=== PATIENT | female | born 1965 | race Caucasian/White ===

== ENCOUNTER 2023-06-07 17:25 | Inpatient (IN) ==
[2023-06-07 18:19] LABS: Basophils # (auto) 0.05 K/uL (0-0.2); Eosinophils # (auto) 0.02 K/uL (0-0.50); Eosinophils % (auto) 0.4 %; Hematocrit (blood only) 39.6 % (37.0-47.0); Immature Granulocytes # (auto) 0.01 K/uL (0.01-0.20); Immature Granulocytes % (auto) 0.2 %; Lymphocytes # (auto) 1.22 K/uL (1.2-3.4); Mean Corpuscular Hgb Conc 32.8 g/dL (32.0-36.0); Mean Corpuscular Volume 100.5 fL (80.0-100.0); Monocytes # (auto) 0.53 K/uL (0.11-0.59); Monocytes % (auto) 10.4 %; Neutrophils # (auto) 3.25 K/uL (1.40-6.50); Platelet Count 255 K/uL (130-400); RDW Coefficient of Variation 15.2 % (11.5-14.5); RDW Standard Deviation 56.2 fL (36.4-46.3); Red Blood Count 3.94 M/uL (4.20-5.40); White Blood Count 5.08 K/ul (4.8-10.8)
[2023-06-07 18:36] LABS: Alanine Aminotransferase 11 U/L (7-52); Albumin Globulin Ratio 1.1 (0.9-2); Albumin Level 3.8 gm/dl (3.4-5.0); Alkaline Phosphatase 102 U/L (34-104); Anion Gap 8 (3-11); Aspartate Aminotransferase 17 U/L (13-39); BUN Creatinine Ratio 22.2 (10-20); Bilirubin,Total 0.6 mg/dl (0.2-1.0); Blood Urea Nitrogen 18 mg/dl (6-23); Calcium 9.4 mg/dl (8.6-10.3); Carbon Dioxide 26 mmol/L (21-32); Chloride 103 mmol/L (98-107); Est GFR (African American) 94.8 ml/min; Est GFR (Non-African American) 81.8 ml/min; Globulin 3.5 gm/dl (2.5-4.0); Glucose 111 mg/dl (70-99(Fasting)); Potassium 4.3 mmol/L (3.5-5.1); Sodium 137 mmol/L (136-145); Total Protein 7.3 gm/dl (6.0-8.3)
--- NOTE | 2023-06-07 18:55 | Emergency Department Note ---
History of Present Illness General Chief complaint: Illness Stated complaint: UNABLE TO WALK,DIZZY,?MEDICATION SIDE EFFECTS Time Seen by Provider: 06/07/23 18:18 Source: family History of Present Illness Provider complaint: Recurrent falls 57-year-old female with history of Down syndrome and Alzheimer's presents emergency department with family for recurrent falls. Patient family reports that she was diagnosed with a UTI about 1 week ago and was started on amp icillin. Sister at bedside states that since being on the ampicillin the patient has developed a rash over her face and her anterior chest and has been extremely weak and keeps falling. She states that the patient is been unable to walk. Home Medications Medication Instructions Recorded Confirmed Type allopurinol 100 mg tablet 100 mg PO DAILY 05/31/23 06/07/23 History apremilast 30 mg tablet (Otezla) 30 mg PO BID 05/31/23 06/07/23 History ascorbic acid (vitamin C) 500 mg 500 mg PO DAILY 05/31/23 06/07/23 History capsule atorvastatin 20 mg tablet 20 mg PO DAILY 05/31/23 06/07/23 History cholecalciferol (vitamin D3) 125 125 mcg PO DAILY 05/31/23 06/07/23 History mcg (5,000 unit) capsule donepezil 5 mg tablet 5 mg PO DAILY 05/31/23 06/07/23 History glucosamine HCl 1,500 mg tablet 1,500 mg PO DAILY 05/31/23 06/07/23 History levothyroxine 137 mcg capsule 137 mcg PO DAILY 05/31/23 06/07/23 History mecobalamin (vitamin B12) 1,000 1,000 mcg PO DAILY 05/31/23 06/07/23 History mcg chewable tablet ampicillin 500 mg capsule 500 mg PO TID #21 caps 06/03/23 06/07/23 Rx aspirin 81 mg tablet,delayed 81 mg PO DAILY 06/07/23 06/07/23 History release calcipotriene-betamethasone 0.005 1 applic topical DAILY 06/07/23 06/07/23 History %-0.064 % topical ointment clindamycin phosphate 1 % topical 1 applic topical DAILY 06/07/23 06/07/23 History swab cranberry juice 1 ea PO DAILY 06/07/23 06/07/23 History metronidazole 0.75 % topical cream 1 applic topical DAILY 06/07/23 06/07/23 History risperidone 0.25 mg tablet 25 mg PO HS 06/07/23 06/07/23 History Allergies Allergy/AdvReac Type Severity Reaction Status Date / Time colchicine Allergy Intermediate Swelling Unverified 06/07/23 20:45 of the Eye Past Med/Surg History Medical History Alzheimer disease Down syndrome Incontinence No pertinent family history Recurrent UTI Surgical History No pertinent past surgical history Social History Smoking Status: Never smoker Preferred Language: Polish Feels Safe at Home: Yes Physical Exam Vital Signs Vital Signs - 24 hr 06/07/23 17:27 06/07/23 18:50 06/07/23 20:32 Temperature 36.5 C Temperature Source Temporal Artery Scan Pulse Rate 74 59 L Pulse Rate [Right Apical] 62 Respiratory Rate 17 24 Respiratory Effort / Characteristics Non-Labored Spontaneous Non-Labored Spontaneous Respiratory Depth Normal Normal Respiratory Pattern Regular Regular Blood Pressure 103/64 Blood Pressure [Left Calf] 109/59 L Blood Pressure Mean 77 Blood Pressure Mean [Left Calf] 75 Pulse Oximetry 98 98 Oxygen Delivery Method Room Air Room Air Sepsis Recent Fever Within 48 Hours No Sepsis New/Unexplained Change in Mental Status No Sepsis Action Taken by Nursing No Action Required 06/07/23 21:01 Temperature Temperature Source Pulse Rate 56 L Pulse Rate [Right Apical] Respiratory Rate 14 Respiratory Effort / Characteristics Respiratory Depth Respiratory Pattern Blood Pressure 94/62 L Blood Pressure [Left Calf] Blood Pressure Mean 72 Blood Pressure Mean [Left Calf] Pulse Oximetry Oxygen Delivery Method Sepsis Recent Fever Within 48 Hours Sepsis New/Unexplained Change in Mental Status Sepsis Action Taken by Nursing Physical Exam HENT: Exam performed. -Head: Normocephalic and atraumatic. -Mouth: Moist mucous membranes, no lesions. CV: Normal rate, regular rhythm, normal heart sounds and intact distal pulses. There is no peripheral edema. Palpable radial pulses bue. PULM/CHEST: Effort normal and breath sounds normal. No respiratory distress. No stridor. She has no wheezes. She has no rales. -Chest Wall: She exhibits no tenderness. ABD: The abdomen is soft and obese MUSC/SKEL: Pelvis stable. NEURO: Motor and sensation grossly intact. SKIN: Urticarial macular rash over the patient's anterior chest and face. No fluctuant areas. No vesicles. Nikolsky negative. Course Course 1817: The patient was evaluated in room B10. A complete history and physical exam was performed Administered Medications Enoxaparin Sodium (Enoxaparin Inj 40 Mg/0.4 Ml Syr) 40 mg SQ HS JACKIE Stop: 07/07/23 22:29 Last Admin: 06/07/23 23:12 Dose: 40 mg Documented By: JORDIN Lactated Ringer's (Lr) 500 mls @ 80 mls/hr IV .[id number] STA Stop: 06/08/23 03:46 Last Admin: 06/07/23 23:06 Dose: 80 mls/hr Documented By: JORDIN Ciprofloxacin (Cipro / D5w) 400 mg in 200 mls @ 100 mls/hr IV Q12H JACKIE; Protocol Stop: 06/12/23 22:59 Last Admin: 06/07/23 23:06 Dose: 100 mls/hr Documented By: JORDIN Discontinued Medications Ioversol (Ioversol 350 Mg 125ml Prefilled Syringe) 118 ml IV ONCE ONE Stop: 06/07/23 19:13 Last Admin: 06/07/23 19:12 Dose: 118 ml Documented By: AMY Medical Decision Making Laboratory Data Attestation: I reviewed the patient's lab results. 06/07/23 17:45 06/07/23 17:45 Lab Results 06/07/23 06/07/23 06/07/23 Range/Units 17:45 17:45 17:45 WBC 5.08 (4.8-10.8) K/ul RBC 3.94 L (4.20-5.40) M/uL Hgb 13.0 (12.0-16.0) g/dl Hct 39.6 (37.0-47.0) % MCV 100.5 H (80.0-100.0) fL MCH 33.0 (25.0-34.0) pg MCHC 32.8 (32.0-36.0) g/dL RDW Std Deviation 56.2 H (36.4-46.3) fL RDW Coeff of Kevin 15.2 H (11.5-14.5) % Plt Count 255 (130-400) K/uL MPV 11.0 (9.4-12.4) fL Immature Gran % (Auto) 0.2 % Neut % (Auto) 64.0 % Lymph % (Auto) 24.0 % [place] % (Auto) 10.4 % Eos % (Auto) 0.4 % Baso % (Auto) 1.0 % Neut # (Auto) 3.25 (1.40-6.50) K/uL Lymph # (Auto) 1.22 (1.2-3.4) K/uL [place] # (Auto) 0.53 (0.11-0.59) K/uL Eos # (Auto) 0.02 (0-0.50) K/uL Baso # (Auto) 0.05 (0-0.2) K/uL Immature Gran # (Auto) 0.01 (0.01-0.20) K/uL Sodium 137 (136-145) mmol/L Potassium 4.3 (3.5-5.1) mmol/L Chloride 103 (98-107) mmol/L Carbon Dioxide 26 (21-32) mmol/L Anion Gap 8 (3-11) BUN 18 (6-23) mg/dl Creatinine 0.81 (0.6-1.2) mg/dl Est Cr Clr Drug Dosing Not Reportable Est GFR ( Amer) 94.8 ml/min Est GFR (Non-Af Amer) 81.8 ml/min BUN/Creatinine Ratio 22.2 H (10-20) Glucose 111 H (70-99(Fasting)) mg/dl Lactate (0.4-2.0) mmol/L Calcium 9.4 (8.6-10.3) mg/dl Magnesium 1.8 (1.7-2.4) mg/dl Total Bilirubin 0.6 (0.2-1.0) mg/dl AST 17 (13-39) U/L ALT 11 (7-52) U/L Alkaline Phosphatase 102 (34-104) U/L Total Protein 7.3 (6.0-8.3) gm/dl Albumin 3.8 (3.4-5.0) gm/dl Globulin 3.5 (2.5-4.0) gm/dl Albumin/Globulin Ratio 1.1 (0.9-2) Procalcitonin < 0.05 (0-0.5) ng/ml Urine Color Urine Appearance (Clear) Urine pH (4.5-7.5) Ur Specific [place] (1.000-1.030) Urine Protein (Negative) Urine Glucose (UA) (Negative) Urine Ketones (Negative) Urine Blood (Negative) Urine Nitrite (Negative) Urine Bilirubin (Negative) Urine Urobilinogen (Negative) Ur Leukocyte Esterase (Negative) SARS-CoV-2, RNA, NAAT (NEGATIVE) 06/07/23 06/07/23 06/07/23 Range/Units 17:54 18:52 21:07 WBC (4.8-10.8) K/ul RBC (4.20-5.40) M/uL Hgb (12.0-16.0) g/dl Hct (37.0-47.0) % MCV (80.0-100.0) fL MCH (25.0-34.0) pg MCHC (32.0-36.0) g/dL RDW Std Deviation (36.4-46.3) fL RDW Coeff of Kvein (11.5-14.5) % Plt Count (130-400) K/uL MPV (9.4-12.4) fL Immature Gran % (Auto) % Neut % (Auto) % Lymph % (Auto) % [place] % (Auto) % Eos % (Auto) % Baso % (Auto) % Neut # (Auto) (1.40-6.50) K/uL Lymph # (Auto) (1.2-3.4) K/uL [place] # (Auto) (0.11-0.59) K/uL Eos # (Auto) (0-0.50) K/uL Baso # (Auto) (0-0.2) K/uL Immature Gran # (Auto) (0.01-0.20) K/uL Sodium (136-145) mmol/L Potassium (3.5-5.1) mmol/L Chloride (98-107) mmol/L Carbon Dioxide (21-32) mmol/L Anion Gap (3-11) BUN (6-23) mg/dl Creatinine (0.6-1.2) mg/dl Est Cr Clr Drug Dosing Est GFR ( Amer) ml/min Est GFR (Non-Af Amer) ml/min BUN/Creatinine Ratio (10-20) Glucose (70-99(Fasting)) mg/dl Lactate 1.3 (0.4-2.0) mmol/L Calcium (8.6-10.3) mg/dl Magnesium (1.7-2.4) mg/dl Total Bilirubin (0.2-1.0) mg/dl AST (13-39) U/L ALT (7-52) U/L Alkaline Phosphatase (34-104) U/L Total Protein (6.0-8.3) gm/dl Albumin (3.4-5.0) gm/dl Globulin (2.5-4.0) gm/dl Albumin/Globulin Ratio (0.9-2) Procalcitonin (0-0.5) ng/ml Urine Color Yellow Urine Appearance Clear (Clear) Urine pH 5.5 (4.5-7.5) Ur Specific [place] 1.019 (1.000-1.030) Urine Protein Negative (Negative) Urine Glucose (UA) Negative (Negative) Urine Ketones Negative (Negative) Urine Blood Negative (Negative) Urine Nitrite Negative (Negative) Urine Bilirubin Negative (Negative) Urine Urobilinogen Negative (Negative) Ur Leukocyte Esterase Negative (Negative) SARS-CoV-2, RNA, NAAT NEGATIVE (NEGATIVE) Imaging Data Attestation: I personally reviewed and interpreted this imaging study as follows: My Impression: Chest x-ray: Chest x-ray negative. Airway clear. No pneumothorax. No consolidation. No cardiomegaly or cephalization.. No free air under the diaphragm. No fractures of the skeletal structures. Pelvis x-ray: No acute fracture or dislocation Radiologist's Impression: Head CT 06/07/23 18:23 Exam(s): CT HEAD Without Contrast EXAM: CT Head Without Intravenous Contrast CLINICAL HISTORY: Reason for exam: recurrent falls. TECHNIQUE: Axial computed tomography images of the head/brain without intravenous contrast. CTDI is 37.22 mGy and DLP is 624.41 mGy-cm. Automated exposure control was utilized for the study. A dose lowering technique was utilized adhering to the principles of ALARA. COMPARISON: No relevant prior studies available. FINDINGS: No acute intracranial hemorrhage. No midline shift or mass effect. The territorial patrick-white matter differentiation is maintained throughout. Age-related cerebral volume loss. Periventricular and subcortical white matter hypoattenuation, consistent with chronic microangiopathy. The visualized orbits appear grossly unremarkable. The calvarium is intact. The visualized paranasal sinuses and mastoid air cells are grossly clear. IMPRESSION: No acute intracranial hemorrhage, midline shift, or mass effect. Electronically signed by: Roman Oseguera MD 06/07/23 19:48 PM Head CTA 06/07/23 18:23 Exam(s): CTA HEAD With Contrast IV Amt: 118 ml optiray 350 EXAM: CT Angiography Head With Intravenous Contrast CLINICAL HISTORY: Reason for exam: recurrent falls. TECHNIQUE: Axial computed tomographic angiography images of the head with intravenous contrast. CTDI is 15.75 mGy and DLP is 575.52 mGy-cm. Automated exposure control was utilized for the study. A dose lowering technique was utilized adhering to the principles of ALARA. MIP reconstructed images were created and reviewed. Mild to moderate motion artifact. CONTRAST: Patient received 118 ml optiray 350 of IV contrast COMPARISON: Noncontrast head CT done earlier. FINDINGS: Right internal carotid artery: Patent. Right anterior cerebral artery: Patent. Right middle cerebral artery: Patent. Right posterior cerebral artery: Patent. Right vertebral artery: Patent. Left internal carotid artery: Patent. Left anterior cerebral artery: Patent. Left middle cerebral artery: Patent. Left posterior cerebral artery: Patent. Left vertebral artery: Patent, though diminutive, due to normal variant anatomy. Basilar artery: Patent. Other: Incidentally, predominant supply of the posterior cerebral artery is via the anterior circulation, also known as origin. IMPRESSION: 1. No aneurysm or large vessel occlusion. Electronically signed by: Marisel Carey M.D. 06/07/23 20:28 PM Neck CTA 06/07/23 18:23 Exam(s): CTA NECK With Contrast IV Amt: 118 ml optiray 350 EXAM: CT Angiography Neck With Intravenous Contrast CLINICAL HISTORY: Reason for exam: recurrent falls. TECHNIQUE: Routine carotid CT angiography protocol was performed with intravenous contrast. NASCET criteria using the distal ICAs for comparison were used for evaluation of stenoses. CTDI is 37.37 mGy and DLP is 18.68 mGy-cm. Automated exposure control was utilized for the study. A dose lowering technique was utilized adhering to the principles of ALARA. MIP reconstructed images were created and reviewed. Mild motion, dental metal, streak artifact from contrast in the left subclavian and brachiocephalic veins, and artifact from body habitus. CONTRAST: Patient received 118 ml optiray 350 of IV contrast COMPARISON: None. FINDINGS: VASCULATURE: Right common carotid artery: Patent. Right internal carotid artery: Patent. Right vertebral artery: Patent. Slight right dominant system. Left common carotid artery: Patent. Left internal carotid artery: Patent. Left vertebral artery: Patent. Other: Ectatic bilateral carotid arteries. No significant atherosclerosis or stenosis. Incidental aberrant left subclavian artery, can result in dysphagia, correlate clinically. IMPRESSION: 1. No dissection, occlusion, or significant stenosis of the carotid and vertebral arteries. 2. Incidental aberrant left subclavian artery. 3. Mild artifact limits detail. CAROTID STENOSIS REFERENCE USING NASCET CRITERIA: % ICA stenosis = (1 - narrowest ICA diameter/diameter of distal cervical ICA) x 100. Mild - <50% stenosis. Moderate - 50-69% stenosis. Severe - 70-94% stenosis. Near occlusion - 95-99% stenosis. Occluded - 100% stenosis. Electronically signed by: Marisel Carey M.D. 06/07/23 20:[address] 06/07/23 18:24 Exam(s): CT C SPINE EXAM: CT Cervical Spine Without Intravenous Contrast CLINICAL HISTORY: Reason for exam: fall. TECHNIQUE: Axial computed tomography images of the cervical spine without intravenous contrast. CTDI is 26.8 mGy and DLP is 532.99 mGy-cm. Automated exposure control was utilized for the study. A dose lowering technique was utilized adhering to the principles of ALARA. COMPARISON: No relevant prior studies available. FINDINGS: The vertebral body heights are maintained. The craniocervical junction is intact. The atlanto-dens interval is maintained. The dens is intact. There is no spondylolisthesis. Multilevel cervical spondylosis and degenerative disc disease. Straightening of the cervical lordosis. The unenhanced neck soft tissues are grossly unremarkable. The visualized lung apices are grossly clear. IMPRESSION: No acute fracture or subluxation of the cervical spine. Electronically signed by: Roman Oseguera MD 06/07/23 19:48 PM [facility] Narrative Cardiac monitoring: An order was placed for continuous cardiac monitoring. The monitor shows a rate of 60 with sinus rhythm interpreted by me Vital signs stable. Labs and imaging within normal limits. Patient is still very weak and having difficulty ambulating. Patient will be [facility] team for further evaluation. Dr. Spring notified. Impression & Plan Drug rash, Alzheimer disease, Down syndrome, Weakness Discharge Plan Visit Data Chief Complaint: Illness Stated Complaint: UNABLE TO WALK,DIZZY,?MEDICATION SIDE EFFECTS ED Provider: Archie Eden Discharge Problem: Drug rash, Alzheimer disease, Down syndrome, Weakness Patient Disposition: Admitted As Inpatient Discharge Instructions Interventions: ED Discharge Assessment Last Done: 06/07/23 21:49
[2023-06-07] MEDS ORDERED: IOVERSOL 350 MG 125mL Prefilled Syringe IV ONE (19:12)
[2023-06-07 19:22] LABS: Appearance Urine Clear (Clear); Bilirubin Urine Negative (Negative); Blood Urine Negative (Negative); Color Urine Yellow; Glucose Urine UA Negative (Negative); Ketones Urine Negative (Negative); Leukocyte Esterase Urine Negative (Negative); Nitrite Urine Negative (Negative); Protein Urine Negative (Negative); Specific Gravity Urine 1.019 (1.000-1.030); Urobilinogen Urine Negative (Negative); pH Urine 5.5 (4.5-7.5)
--- NOTE | 2023-06-07 19:49 | CT Scan Report ---
Exam(s): CT C SPINE EXAM: CT Cervical Spine Without Intravenous Contrast CLINICAL HISTORY: Reason for exam: fall. TECHNIQUE: Axial computed tomography images of the cervical spine without intravenous contrast. CTDI is 26.8 mGy and DLP is 532.99 mGy-cm. Automated exposure control was utilized for the study. A dose lowering technique was utilized adhering to the principles of ALARA. COMPARISON: No relevant prior studies available. FINDINGS: The vertebral body heights are maintained. The craniocervical junction is intact. The atlanto-dens interval is maintained. The dens is intact. There is no spondylolisthesis. Multilevel cervical spondylosis and degenerative disc disease. Straightening of the cervical lordosis. The unenhanced neck soft tissues are grossly unremarkable. The visualized lung apices are grossly clear. IMPRESSION: No acute fracture or subluxation of the cervical spine. Electronically signed by: Roman Oseguera MD 06/07/23 19:48 PM
--- NOTE | 2023-06-07 19:49 | CT Scan Report ---
Exam(s): CT HEAD Without Contrast EXAM: CT Head Without Intravenous Contrast CLINICAL HISTORY: Reason for exam: recurrent falls. TECHNIQUE: Axial computed tomography images of the head/brain without intravenous contrast. CTDI is 37.22 mGy and DLP is 624.41 mGy-cm. Automated exposure control was utilized for the study. A dose lowering technique was utilized adhering to the principles of ALARA. COMPARISON: No relevant prior studies available. FINDINGS: No acute intracranial hemorrhage. No midline shift or mass effect. The territorial patrick-white matter differentiation is maintained throughout. Age-related cerebral volume loss. Periventricular and subcortical white matter hypoattenuation, consistent with chronic microangiopathy. The visualized orbits appear grossly unremarkable. The calvarium is intact. The visualized paranasal sinuses and mastoid air cells are grossly clear. IMPRESSION: No acute intracranial hemorrhage, midline shift, or mass effect. Electronically signed by: Roman Oseguera MD 06/07/23 19:48 PM
--- NOTE | 2023-06-07 20:29 | CT Scan Report ---
Exam(s): CTA HEAD With Contrast IV Amt: 118 ml optiray 350 EXAM: CT Angiography Head With Intravenous Contrast CLINICAL HISTORY: Reason for exam: recurrent falls. TECHNIQUE: Axial computed tomographic angiography images of the head with intravenous contrast. CTDI is 15.75 mGy and DLP is 575.52 mGy-cm. Automated exposure control was utilized for the study. A dose lowering technique was utilized adhering to the principles of ALARA. MIP reconstructed images were created and reviewed. Mild to moderate motion artifact. CONTRAST: Patient received 118 ml optiray 350 of IV contrast COMPARISON: Noncontrast head CT done earlier. FINDINGS: Right internal carotid artery: Patent. Right anterior cerebral artery: Patent. Right middle cerebral artery: Patent. Right posterior cerebral artery: Patent. Right vertebral artery: Patent. Left internal carotid artery: Patent. Left anterior cerebral artery: Patent. Left middle cerebral artery: Patent. Left posterior cerebral artery: Patent. Left vertebral artery: Patent, though diminutive, due to normal variant anatomy. Basilar artery: Patent. Other: Incidentally, predominant supply of the posterior cerebral artery is via the anterior circulation, also known as origin. IMPRESSION: 1. No aneurysm or large vessel occlusion. Electronically signed by: Marisel Carey M.D. 06/07/23 20:28 PM
--- NOTE | 2023-06-07 20:29 | CT Scan Report ---
Exam(s): CTA NECK With Contrast IV Amt: 118 ml optiray 350 EXAM: CT Angiography Neck With Intravenous Contrast CLINICAL HISTORY: Reason for exam: recurrent falls. TECHNIQUE: Routine carotid CT angiography protocol was performed with intravenous contrast. NASCET criteria using the distal ICAs for comparison were used for evaluation of stenoses. CTDI is 37.37 mGy and DLP is 18.68 mGy-cm. Automated exposure control was utilized for the study. A dose lowering technique was utilized adhering to the principles of ALARA. MIP reconstructed images were created and reviewed. Mild motion, dental metal, streak artifact from contrast in the left subclavian and brachiocephalic veins, and artifact from body habitus. CONTRAST: Patient received 118 ml optiray 350 of IV contrast COMPARISON: None. FINDINGS: VASCULATURE: Right common carotid artery: Patent. Right internal carotid artery: Patent. Right vertebral artery: Patent. Slight right dominant system. Left common carotid artery: Patent. Left internal carotid artery: Patent. Left vertebral artery: Patent. Other: Ectatic bilateral carotid arteries. No significant atherosclerosis or stenosis. Incidental aberrant left subclavian artery, can result in dysphagia, correlate clinically. IMPRESSION: 1. No dissection, occlusion, or significant stenosis of the carotid and vertebral arteries. 2. Incidental aberrant left subclavian artery. 3. Mild artifact limits detail. CAROTID STENOSIS REFERENCE USING NASCET CRITERIA: % ICA stenosis = (1 - narrowest ICA diameter/diameter of distal cervical ICA) x 100. Mild - <50% stenosis. Moderate - 50-69% stenosis. Severe - 70-94% stenosis. Near occlusion - 95-99% stenosis. Occluded - 100% stenosis. Electronically signed by: Marisel Carey M.D. 06/07/23 20:28 PM
--- NOTE | 2023-06-07 20:56 | History & Physical Report ---
Date of Service June 07, 2023 Assessment & Plan (1) Drug rash: Plan: Rash, suspect drug rash 2/2 ampicillin Patient diagnosed with Enterococcus UTI in the preceding week, was able to tolerate 3/7 days of ampicillin but developed a rash on her chest and rapid progressive fatigue immediately after starting antibiotic - Hgb 13.0 - No electrolyte derangement - Cr 0.81 - PCT 0.05 No nausea/vomiting/diarrhea/bloody BMs. Is incontinent of urine at baseline. Will hold ampicillin, switch to ciprofloxacin (is sensitive per 05/31/2023 sensitivities)QTc is not prolonged at 418 on admission Weakness, recent UTI With recent UTI and suspected drug reaction. Ampicillin converted to Cipro as noted No evidence of airway compromise We will add hydroxyzine for itching - No leukocytosis, no concurrent UTI or other viral symptoms - CT-C spine: No acute fracture or subluxation of the cervical spine. -CTA-Neck: 1. No dissection, occlusion, or significant stenosis of the carotid and vertebral arteries. 2. Incidental aberrant left subclavian artery.3. Mild artifact limits detail. -CTA-H: 1. No aneurysm or large vessel occlusion. -CT-H: No acute intracranial hemorrhage, midline shift, or mass effect. No focal weakness on exam Left TM with ear tube and chronic scarring, right TM partially obscured by cerumen but no overt injection/erythema is noted Suspect some element of superimposed deconditioning worsened with recent UTI Lower suspicion for inflammatory demyelinating polyneuropathy/reactive neuropathy/GBS. Appears globally weak in setting of infection and while legs are more weak than arms does not appear to have an ascending weakness pattern. If not improving/suspicion rises is can follow-up with CSF/EMG/MRI/antibody testing - Mg ordered, pending LILIBETH - CPAP AUTOTITRATE 4-10 Hyperlipidemia Aspirin, atorvastatin continued Hypothyroidism Continue Synthroid 137 Downs/Mood Disorder/Alzheimers - Risperidone 25mg qHS Psoriasis - Apremilast BID continued DVT prophylaxis: Lovenox Diet: Regular Disposition: Medical/surgical CODE STATUS: Full code (2) Down syndrome: (3) Alzheimer disease: (4) Recurrent UTI: (5) Weakness: History of Present Illness Primary Care Provider: Blas Medellin is a 57-year-old female with a past medical history of Down syndrome, Alzheimer's, recurrent falls who started on ampicillin 1 week ago for UTI and since then has had a rash over her face and chest with worsening weakness and falls Elise is seen with her parents present. Weak and dizzy for ~3 days. Much more weak, normally unstead on her feet but feels very tired and much more weak than normal 3x falls, very hard to get up standing due to weakness No fevers, or chills. No temperature No cough, congestion, shotness of breath, difficulty breathing No chest pain or chest pressure COmpleted an antibiotic course which she was on for one week. No urinary sypmtoms, but + rash. Was on bactrim for a UTI the week prior. Saw [facility] and tested positive for a different UTI --> f/u with amoxNOm completed 3 of 7 days of ampicillin for enterococcus UTI Medical History: Reviewed Medications: Reviewed Surgical History: Reviewed Family history: Reviewed Allergies: Reviewed Social History: Reviewed no tobacco/etoh Code Status: Full per family r tm obscured l tm with ear tubes in place, TM scarring present. No erythema/effusion Allergies Allergy/AdvReac Type Severity Reaction Status Date / Time colchicine Allergy Intermediate Swelling Unverified 06/07/23 20:45 of the Eye Home Medications Medication Instructions Recorded Confirmed Type allopurinol 100 mg tablet 100 mg PO DAILY 05/31/23 06/07/23 History apremilast 30 mg tablet (Otezla) 30 mg PO BID 05/31/23 06/07/23 History ascorbic acid (vitamin C) 500 mg 500 mg PO DAILY 05/31/23 06/07/23 History capsule atorvastatin 20 mg tablet 20 mg PO DAILY 05/31/23 06/07/23 History cholecalciferol (vitamin D3) 125 125 mcg PO DAILY 05/31/23 06/07/23 History mcg (5,000 unit) capsule donepezil 5 mg tablet 5 mg PO DAILY 05/31/23 06/07/23 History glucosamine HCl 1,500 mg tablet 1,500 mg PO DAILY 05/31/23 06/07/23 History levothyroxine 137 mcg capsule 137 mcg PO DAILY 05/31/23 06/07/23 History mecobalamin (vitamin B12) 1,000 1,000 mcg PO DAILY 05/31/23 06/07/23 History mcg chewable tablet ampicillin 500 mg capsule 500 mg PO TID #21 caps 06/03/23 06/07/23 Rx aspirin 81 mg tablet,delayed 81 mg PO DAILY 06/07/23 06/07/23 History release calcipotriene-betamethasone 0.005 1 applic topical DAILY 06/07/23 06/07/23 History %-0.064 % topical ointment clindamycin phosphate 1 % topical 1 applic topical DAILY 06/07/23 06/07/23 History swab cranberry juice 1 ea PO DAILY 06/07/23 06/07/23 History metronidazole 0.75 % topical cream 1 applic topical DAILY 06/07/23 06/07/23 Hist ory risperidone 0.25 mg tablet 25 mg PO HS 06/07/23 06/07/23 History Past Med/Surg History Medical History Alzheimer disease Down syndrome Incontinence No pertinent family history Recurrent UTI Surgical History No pertinent past surgical history Social History Smoking Status: Never smoker Preferred Language: German Feels Safe at Home: Yes Review of Systems Review of Systems: All systems reviewed & are unremarkable except as noted in HPI & below Physical Exam Physical Exam: General: Oriented to name NAD. Cooperative. HEENT: Atraumatic, normocephalic. Vision/hearing grossly intact. No airway swelling, uvula is midline, no mucous membrane swelling/angioedema Skin: Erythematous, pruritic, scattered papular rash present overlying the chest and proximal anterior shoulders bilaterally Pulm: CTAB A&P. -wheezes, -rales, -rhonchi. Symmetrical chest rise. No increased work of breathing. No respiratory distress. Cardiac: RRR, -mrg. Radial pulses intact and symmetrical. Abdominal: Nontender, nondistended, soft. BS present. Extremities: Warm, dry. Moves all extremities equally, fatigues very easily. Endorses sensation intact to soft touch in hands and feet, limited exam somewhat by mental status Results & Data Results & Data Vital Signs (Past 12 Hours) Vital Signs Temp Pulse Pulse Resp BP BP Pulse Ox 06/07/23 20:32 59 L 06/07/23 18:50 62 24 109/59 L 98 06/07/23 17:27 36.5 C 74 17 103/64 98 O2 Del Method 06/07/23 20:32 06/07/23 18:50 Room Air 06/07/23 17:27 Room Air PG Care Time/CCT Total # of Minutes Spent Total Time Spent with Patient: Total time spent is greater than 50% in coordination of care (as documented) at patient's floor/unit and/or counseling patient: Coding Level of Care Code 03109 INT INP/OBS CARE 3/75MIN Diagnoses Drug rash L27.0 Down syndrome Q90.9 Alzheimer disease G30.9; F02.80 Recurrent UTI N39.0 Weakness R53.1
[2023-06-07] MEDS ORDERED: LACTATED RINGER'S 500 ML IV STA (21:32)
[2023-06-07 21:49] LABS: Magnesium 1.8 mg/dl (1.7-2.4)
[2023-06-07] MEDS: CIPROFLOXACIN / D5W 400 MG/200 ML BAG IV SCH (23:06)
[2023-06-07] MEDS: ENOXAPARIN INJ 40 MG/0.4 ML SYR SQ SCH (23:12)
[2023-06-08] MEDS: LEVOTHYROXINE SODIUM 137 MCG TABLET PO SCH (05:29)
[2023-06-08 07:14] LABS: Hematocrit (blood only) 35.7 % (37.0-47.0); Hemoglobin 11.8 g/dl (12.0-16.0); Lymphocytes % (auto) 40.6 %; Mean Corpuscular Hemoglobin 32.9 pg (25.0-34.0); Mean Corpuscular Hgb Conc 33.1 g/dL (32.0-36.0); Mean Corpuscular Volume 99.4 fL (80.0-100.0); Mean Platelet Volume 10.4 fL (9.4-12.4); Monocytes % (auto) 15.9 %; Neutrophils % (auto) 40.9 %; Platelet Count 234 K/uL (130-400); RDW Coefficient of Variation 15.2 % (11.5-14.5); RDW Standard Deviation 55.5 fL (36.4-46.3); Red Blood Count 3.59 M/uL (4.20-5.40); White Blood Count 2.71 K/ul (4.8-10.8)
[2023-06-08 07:15] LABS: Basophils # (auto) 0.04 K/uL (0-0.2); Basophils % (auto) 1.5 %; Eosinophils # (auto) 0.03 K/uL (0-0.50); Eosinophils % (auto) 1.1 %; Monocytes # (auto) 0.43 K/uL (0.11-0.59); Neutrophils # (auto) 1.11 K/uL (1.40-6.50)
[2023-06-08 07:39] LABS: Calcium 9.2 mg/dl (8.6-10.3); Creatinine Clr Calc Pharmacy 100.1 ml/min; Magnesium 1.8 mg/dl (1.7-2.4); Potassium 3.8 mmol/L (3.5-5.1)
--- NOTE | 2023-06-08 07:45 | XRay Report ---
XR pelvis 1-2V routine HISTORY: 57 years-old Female fall acute pelvic pain status post fall COMPARISON: None TECHNIQUE: AP view of the pelvis FINDINGS: Somewhat limited evaluation of the proximal femora secondary to positioning. Possible chronic right i nferior pubic ramus fracture. No acute fracture, dislocation or avascular necrosis. Mild osteoarthrit is of the hips. Contrast noted within the urinary bladder and imaged ureters. IMPRESSION: No definite acute fracture or dislocation identified. ACT 112: Negative or not required by law. The above report was generated using voice recognition software. It may contain grammatical, syntax o r spelling errors. Electronically signed by: Jann Aviles M.D. 06/08/2023 7:44 AM
--- NOTE | 2023-06-08 07:46 | XRay Report ---
XR chest 1V portable HISTORY: 57 years-old Female illness acute shortness of breath COMPARISON: CTA neck of same day TECHNIQUE: AP view of the chest FINDINGS: Cardiac silhouette is upper limits of normal in size. No pneumothorax, pleural effusion, airspace con solidation or pulmonary edema. Bones appear grossly intact. IMPRESSION: No acute process. ACT 112: Negative or not required by law. The above report was generated using voice recognition software. It may contain grammatical, syntax o r spelling errors. Electronically signed by: Jann Aviles M.D. 06/08/2023 7:45 AM
--- NOTE | 2023-06-08 08:50 | Hospitalist Progress Note ---
Date of Service June 08, 2023 Assessment & Plan (1) Drug rash: Plan: Rash, suspect drug rash 2/2 ampicillin Patient diagnosed with Enterococcus UTI in the preceding week, was able to tolerate 3/7 days of ampicillin but developed a rash on her chest and rapid progressive fatigue immediately after starting antibiotic. Procal .05, Incontinent of urine reported at baseline, however per family worsening/ongoing issue w/ falls over past 3-5 months (will check lumbar spine as well) Holding further ampicillin --> placed on Cipro (sensitive per 05/31 cx/s) and family stated tolerated in past Complete course PO on cipro Pepcid IV added for reflux/itching as well PT/OT consults to be undertaken Weakness, recent UTI With recent UTI and suspected drug reaction. Ampicillin converted to Cipro as noted No evidence of airway compromise We will add hydroxyzine for itching, pepcid IVP daily No leukocytosis/concurrent UTi or other viral symptoms CT head negative on admission. CTA head/neck w/o aneurysm. noted incidental aberrant L subclavian artery. Left TM with ear tube and chronic scarring, right TM partially obscured by cerumen but no overt injection/erythema is noted Suspect some element of superimposed deconditioning worsened with recent UTI Lower suspicion for inflammatory demyelinating polyneuropathy/reactive neuropathy/GBS. Appears globally weak in setting of infection and while legs are more weak than arms does not appear to have an ascending weakness pattern. If not improving/suspicion rises is can follow-up with CSF/EMG/MRI/antibody testing As above, will check lumbar spine w/ incontinence issues. Possible need for MRI but will await xray first LILIBETH CPAP HS, Hyperlipidemia Aspirin, atorvastatin continued Hypothyroidism Continue Synthroid 137mcg daily Downs/Mood Disorder/Alzheimers - Risperidone 25mg qHS Psoriasis - Apremilast BID continued DVT prophylaxis: Lovenox SQ while inpatient (2) Down syndrome: (3) Alzheimer disease: (4) Recurrent UTI: (5) Weakness: Admission and Anticipated Discharge Date Admission Date: June 07, 2023 Supervising Physician Co-Signing Physician Notes The patient was not seen by me. The chart was reviewed. Case discussed with JESUSITA Steen. Agree with assessment and plan Subjective eval this morning, family at bedside reports rash improving, did notice some itching. states believes has tolerated ciprofloxacin in the past ad will continue and monitor for any issues. some loss of bowel/bladder function, alzheimers as well. per family at bedside, have been having to use briefs over past couple of months since falls and ongoing issues they are agreeable to lumbar spine xray to look for any issues since her fall. Physical Exam Physical Exam: General: WD/WN female sitting up in bed, family at bedside, NAD HEENT: rash to face/chest (reportedly improving from prior day), trachea midline without deviation Resp: no distress/cough, poor effort at times, no wheezing/rales, on room air CV: regular/geovani, regular rate, no significant m/r/g, no calf tenderness GI: +BS, soft/NT ; no rivas MSK/Neuro: generalized weakness, decreased dorsiflexion/plantar flexion (but equal bilaterally) Psych: alert to person/place, cooperaitve with exam alzheimers at baseline/downs syndrome Results & Data Results & Data Vital Signs (Past 12 Hours) Vital Signs Temp Pulse Pulse Resp BP BP Pulse Ox 06/08/23 07:22 36.0 C L 57 L 18 103/64 97 06/07/23 23:03 36.6 C 58 L 18 101/58 L 95 06/07/23 21:45 57 L 17 95/57 L 97 06/07/23 21:01 56 L 14 94/62 L O2 Del Method 06/08/23 07:22 Room Air 06/07/23 23:03 Room Air 06/07/23 21:45 Room Air 06/07/23 21:01 Laboratory Results 06/08/23 06/08/23 06/07/23 Range/Units 06:43 06:43 21:07 WBC 2.71 L (4.8-10.8) K/ul RBC 3.59 L (4.20-5.40) M/uL Hgb 11.8 L (12.0-16.0) g/dl Hct 35.7 L (37.0-47.0) % MCV 99.4 (80.0-100.0) fL MCH 32.9 (25.0-34.0) pg MCHC 33.1 (32.0-36.0) g/dL RDW Std Deviation 55.5 H (36.4-46.3) fL RDW Coeff of Kevin 15.2 H (11.5-14.5) % Plt Count 234 (130-400) K/uL MPV 10.4 (9.4-12.4) fL Immature Gran % (Auto) 0.0 % Neut % (Auto) 40.9 % Lymph % (Auto) 40.6 % Roberts % (Auto) 15.9 % Eos % (Auto) 1.1 % Baso % (Auto) 1.5 % Neut # (Auto) 1.11 L (1.40-6.50) K/uL Lymph # (Auto) 1.10 L (1.2-3.4) K/uL Roberts # (Auto) 0.43 (0.11-0.59) K/uL Eos # (Auto) 0.03 (0-0.50) K/uL Baso # (Auto) 0.04 (0-0.2) K/uL Immature Gran # (Auto) 0.00 L (0.01-0.20) K/uL Sodium 139 (136-145) mmol/L Potassium 3.8 (3.5-5.1) mmol/L Chloride 106 (98-107) mmol/L Carbon Dioxide 27 (21-32) mmol/L Anion Gap 6 (3-11) BUN 12 (6-23) mg/dl Creatinine 0.63 (0.6-1.2) mg/dl Est Cr Clr Drug Dosing 100.1 Est GFR ( Amer) 117.0 ml/min Est GFR (Non-Af Amer) 101.0 ml/min BUN/Creatinine Ratio 19.0 (10-20) Glucose 101 H (70-99(Fasting)) mg/dl Lactate (0.4-2.0) mmol/L Calcium 9.2 (8.6-10.3) mg/dl Magnesium 1.8 (1.7-2.4) mg/dl Total Bilirubin (0.2-1.0) mg/dl AST (13-39) U/L ALT (7-52) U/L Alkaline Phosphatase (34-104) U/L Total Protein (6.0-8.3) gm/dl Albumin (3.4-5.0) gm/dl Globulin (2.5-4.0) gm/dl Albumin/Globulin Ratio (0.9-2) Procalcitonin (0-0.5) ng/ml Urine Color Urine Appearance (Clear) Urine pH (4.5-7.5) Ur Specific Roxana (1.000-1.030) Urine Protein (Negative) Urine Glucose (UA) (Negative) Urine Ketones (Negative) Urine Blood (Negative) Urine Nitrite (Negative) Urine Bilirubin (Negative) Urine Urobilinogen (Negative) Ur Leukocyte Esterase (Negative) SARS-CoV-2, RNA, NAAT NEGATIVE (NEGATIVE) 06/07/23 06/07/23 06/07/23 Range/Units 18:52 17:54 17:45 WBC (4.8-10.8) K/ul RBC (4.20-5.40) M/uL Hgb (12.0-16.0) g/dl Hct (37.0-47.0) % MCV (80.0-100.0) fL MCH (25.0-34.0) pg MCHC (32.0-36.0) g/dL RDW Std Deviation (36.4-46.3) fL RDW Coeff of Kevin (11.5-14.5) % Plt Count (130-400) K/uL MPV (9.4-12.4) fL Immature Gran % (Auto) % Neut % (Auto) % Lymph % (Auto) % Roberts % (Auto) % Eos % (Auto) % Baso % (Auto) % Neut # (Auto) (1.40-6.50) K/uL Lymph # (Auto) (1.2-3.4) K/uL Roberts # (Auto) (0.11-0.59) K/uL Eos # (Auto) (0-0.50) K/uL Baso # (Auto) (0-0.2) K/uL Immature Gran # (Auto) (0.01-0.20) K/uL Sodium (136-145) mmol/L Potassium (3.5-5.1) mmol/L Chloride (98-107) mmol/L Carbon Dioxide (21-32) mmol/L Anion Gap (3-11) BUN (6-23) mg/dl Creatinine (0.6-1.2) mg/dl Est Cr Clr Drug Dosing Est GFR ( Amer) ml/min Est GFR (Non-Af Amer) ml/min BUN/Creatinine Ratio (10-20) Glucose (70-99(Fasting)) mg/dl Lactate 1.3 (0.4-2.0) mmol/L Calcium (8.6-10.3) mg/dl Magnesium (1.7-2.4) mg/dl Total Bilirubin (0.2-1.0) mg/dl AST (13-39) U/L ALT (7-52) U/L Alkaline Phosphatase (34-104) U/L Total Protein (6.0-8.3) gm/dl Albumin (3.4-5.0) gm/dl Globulin (2.5-4.0) gm/dl Albumin/Globulin Ratio (0.9-2) Procalcitonin < 0.05 (0-0.5) ng/ml Urine Color Yellow Urine Appearance Clear (Clear) Urine pH 5.5 (4.5-7.5) Ur Specific Roxana 1.019 (1.000-1.030) Urine Protein Negative (Negative) Urine Glucose (UA) Negative (Negative) Urine Ketones Negative (Negative) Urine Blood Negative (Negative) Urine Nitrite Negative (Negative) Urine Bilirubin Negative (Negative) Urine Urobilinogen Negative (Negative) Ur Leukocyte Esterase Negative (Negative) SARS-CoV-2, RNA, NAAT (NEGATIVE) 06/07/23 06/07/23 Range/Units 17:45 17:45 WBC 5.08 (4.8-10.8) K/ul RBC 3.94 L (4.20-5.40) M/uL Hgb 13.0 (12.0-16.0) g/dl Hct 39.6 (37.0-47.0) % MCV 100.5 H (80.0-100.0) fL MCH 33.0 (25.0-34.0) pg MCHC 32.8 (32.0-36.0) g/dL RDW Std Deviation 56.2 H (36.4-46.3) fL RDW Coeff of Kevin 15.2 H (11.5-14.5) % Plt Count 255 (130-400) K/uL MPV 11.0 (9.4-12.4) fL Immature Gran % (Auto) 0.2 % Neut % (Auto) 64.0 % Lymph % (Auto) 24.0 % Roberts % (Auto) 10.4 % Eos % (Auto) 0.4 % Baso % (Auto) 1.0 % Neut # (Auto) 3.25 (1.40-6.50) K/uL Lymph # (Auto) 1.22 (1.2-3.4) K/uL Roberts # (Auto) 0.53 (0.11-0.59) K/uL Eos # (Auto) 0.02 (0-0.50) K/uL Baso # (Auto) 0.05 (0-0.2) K/uL Immature Gran # (Auto) 0.01 (0.01-0.20) K/uL Sodium 137 (136-145) mmol/L Potassium 4.3 (3.5-5.1) mmol/L Chloride 103 (98-107) mmol/L Carbon Dioxide 26 (21-32) mmol/L Anion Gap 8 (3-11) BUN 18 (6-23) mg/dl Creatinine 0.81 (0.6-1.2) mg/dl Est Cr Clr Drug Dosing Not Reportable Est GFR ( Amer) 94.8 ml/min Est GFR (Non-Af Amer) 81.8 ml/min BUN/Creatinine Ratio 22.2 H (10-20) Glucose 111 H (70-99(Fasting)) mg/dl Lactate (0.4-2.0) mmol/L Calcium 9.4 (8.6-10.3) mg/dl Magnesium 1.8 (1.7-2.4) mg/dl Total Bilirubin 0.6 (0.2-1.0) mg/dl AST 17 (13-39) U/L ALT 11 (7-52) U/L Alkaline Phosphatase 102 (34-104) U/L Total Protein 7.3 (6.0-8.3) gm/dl Albumin 3.8 (3.4-5.0) gm/dl Globulin 3.5 (2.5-4.0) gm/dl Albumin/Globulin Ratio 1.1 (0.9-2) Procalcitonin (0-0.5) ng/ml Urine Color Urine Appearance (Clear) Urine pH (4.5-7.5) Ur Specific Roxana (1.000-1.030) Urine Protein (Negative) Urine Glucose (UA) (Negative) Urine Ketones (Negative) Urine Blood (Negative) Urine Nitrite (Negative) Urine Bilirubin (Negative) Urine Urobilinogen (Negative) Ur Leukocyte Esterase (Negative) SARS-CoV-2, RNA, NAAT (NEGATIVE) Diagnostic Findings Chest X-Ray 06/07/23 17:33 XR chest 1V portable HISTORY: 57 years-old Female illness acute shortness of breath COMPARISON: CTA neck of same day TECHNIQUE: AP view of the chest FINDINGS: Cardiac silhouette is upper limits of normal in size. No pneumothorax, pleural effusion, airspace consolidation or pulmonary edema. Bones appear grossly intact. IMPRESSION: No acute process. ACT 112: Negative or not required by law. The above report was generated using voice recognition software. It may contain grammatical, syntax or spelling errors. Electronically signed by: Jann vAiles M.D. 06/08/2023 7:[address] 06/07/23 18:23 Exam(s): CT HEAD Without Contrast EXAM: CT Head Without Intravenous Contrast CLINICAL HISTORY: Reason for exam: recurrent falls. TECHNIQUE: Axial computed tomography images of the head/brain without intravenous contrast. CTDI is 37.22 mGy and DLP is 624.41 mGy-cm. Automated exposure control was utilized for the study. A dose lowering technique was utilized adhering to the principles of ALARA. COMPARISON: No relevant prior studies available. FINDINGS: No acute intracranial hemorrhage. No midline shift or mass effect. The territorial patrick-white matter differentiation is maintained throughout. Age-related cerebral volume loss. Periventricular and subcortical white matter hypoattenuation, consistent with chronic microangiopathy. The visualized orbits appear grossly unremarkable. The calvarium is intact. The visualized paranasal sinuses and mastoid air cells are grossly clear. IMPRESSION: No acute intracranial hemorrhage, midline shift, or mass effect. Electronically signed by: Roman Oseguera MD 06/07/23 19:48 PM Head CTA 06/07/23 18:23 Exam(s): CTA HEAD With Contrast IV Amt: 118 ml optiray 350 EXAM: CT Angiography Head With Intravenous Contrast CLINICAL HISTORY: Reason for exam: recurrent falls. TECHNIQUE: Axial computed tomographic angiography images of the head with intravenous contrast. CTDI is 15.75 mGy and DLP is 575.52 mGy-cm. Automated exposure control was utilized for the study. A dose lowering technique was utilized adhering to the principles of ALARA. MIP reconstructed images were created and reviewed. Mild to moderate motion artifact. CONTRAST: Patient received 118 ml optiray 350 of IV contrast COMPARISON: Noncontrast head CT done earlier. FINDINGS: Right internal carotid artery: Patent. Right anterior cerebral artery: Patent. Right middle cerebral artery: Patent. Right posterior cerebral artery: Patent. Right vertebral artery: Patent. Left internal carotid artery: Patent. Left anterior cerebral artery: Patent. Left middle cerebral artery: Patent. Left posterior cerebral artery: Patent. Left vertebral artery: Patent, though diminutive, due to normal variant anatomy. Basilar artery: Patent. Other: Incidentally, predominant supply of the posterior cerebral artery is via the anterior circulation, also known as origin. IMPRESSION: 1. No aneurysm or large vessel occlusion. Electronically signed by: Marisel Carey M.D. 06/07/23 20:28 PM Neck CTA 06/07/23 18:23 Exam(s): CTA NECK With Contrast IV Amt: 118 ml optiray 350 EXAM: CT Angiography Neck With Intravenous Contrast CLINICAL HISTORY: Reason for exam: recurrent falls. TECHNIQUE: Routine carotid CT angiography protocol was performed with intravenous contrast. NASCET criteria using the distal ICAs for comparison were used for evaluation of stenoses. CTDI is 37.37 mGy and DLP is 18.68 mGy-cm. Automated exposure control was utilized for the study. A dose lowering technique was utilized adhering to the principles of ALARA. MIP reconstructed images were created and reviewed. Mild motion, dental metal, streak artifact from contrast in the left subclavian and brachiocephalic veins, and artifact from body habitus. CONTRAST: Patient received 118 ml optiray 350 of IV contrast COMPARISON: None. FINDINGS: VASCULATURE: Right common carotid artery: Patent. Right internal carotid artery: Patent. Right vertebral artery: Patent. Slight right dominant system. Left common carotid artery: Patent. Left internal carotid artery: Patent. Left vertebral artery: Patent. Other: Ectatic bilateral carotid arteries. No significant atherosclerosis or stenosis. Incidental aberrant left subclavian artery, can result in dysphagia, correlate clinically. IMPRESSION: 1. No dissection, occlusion, or significant stenosis of the carotid and vertebral arteries. 2. Incidental aberrant left subclavian artery. 3. Mild artifact limits detail. CAROTID STENOSIS REFERENCE USING NASCET CRITERIA: % ICA stenosis = (1 - narrowest ICA diameter/diameter of distal cervical ICA) x 100. Mild - <50% stenosis. Moderate - 50-69% stenosis. Severe - 70-94% stenosis. Near occlusion - 95-99% stenosis. Occluded - 100% stenosis. Electronically signed by: Marisel Carey M.D. 06/07/23 20:[address] 06/07/23 18:24 Exam(s): CT C SPINE EXAM: CT Cervical Spine Without Intravenous Contrast CLINICAL HISTORY: Reason for exam: fall. TECHNIQUE: Axial computed tomography images of the cervical spine without intravenous contrast. CTDI is 26.8 mGy and DLP is 532.99 mGy-cm. Automated exposure control was utilized for the study. A dose lowering technique was utilized adhering to the principles of ALARA. COMPARISON: No relevant prior studies available. FINDINGS: The vertebral body heights are maintained. The craniocervical junction is intact. The atlanto-dens interval is maintained. The dens is intact. There is no spondylolisthesis. Multilevel cervical spondylosis and degenerative disc disease. Straightening of the cervical lordosis. The unenhanced neck soft tissues are grossly unremarkable. The visualized lung apices are grossly clear. IMPRESSION: No acute fracture or subluxation of the cervical spine. Electronically signed by: Roman Oseguera MD 06/07/23 19:48 PM Pelvis X-Ray 06/07/23 18:41 XR pelvis 1-2V routine HISTORY: 57 years-old Female fall acute pelvic pain status post fall COMPARISON: None TECHNIQUE: AP view of the pelvis FINDINGS: Somewhat limited evaluation of the proximal femora secondary to positioning. Possible chronic right inferior pubic ramus fracture. No acute fracture, dislocation or avascular necrosis. Mild osteoarthritis of the hips. Contrast noted within the urinary bladder and imaged ureters. IMPRESSION: No definite acute fracture or dislocation identified. ACT 112: Negative or not required by law. The above report was generated using voice recognition software. It may contain grammatical, syntax or spelling errors. Electronically signed by: Jann Aviles M.D. 06/08/2023 7:44 AM PG Care Time/CCT Total # of Minutes Spent Total Time Spent with Patient: Total time spent is greater than 50% in coordination of care (as documented) at patient's floor/unit and/or counseling patient: Coding Level of Care Code 07714 SUB INP/OBS CARE 235MIN Diagnoses Drug rash L27.0 Down syndrome Q90.9 Alzheimer disease G30.9; F02.80 Recurrent UTI N39.0 Weakness R53.1
[2023-06-08] MEDS: allopurinoL 100 MG TAB PO SCH (08:57)
[2023-06-08] MEDS: ASCORBIC ACID 500 MG TAB PO SCH (08:58)
[2023-06-08] MEDS: DONEPEZIL HCL 5 MG TAB PO SCH (08:58)
[2023-06-08] MEDS: ATORVASTATIN 20 MG TAB PO SCH (08:58)
[2023-06-08] MEDS: ASPIRIN 81 MG ECTAB PO SCH (08:58)
[2023-06-08] MEDS: CYANOCOBALAMIN (B-12) 500 MCG TABLET PO SCH (08:59)
[2023-06-08] MEDS ORDERED: CHOLECALCIFEROL 5,000 UNITS 125 MCG TAB PO SCH (09:00)
--- NOTE | 2023-06-08 11:12 | Electrocardiogram Report ---
Test Reason : Blood Pressure : / mmHG Vent. Rate : 072 BPM Atrial Rate : 072 BPM P-R Int : 144 ms QRS Dur : 070 ms QT Int : 382 ms P-R-T Axes : 065 012 055 degrees QTc Int : 418 ms Normal sinus rhythm Normal ECG No previous ECGs available Confirmed by Austin Keith ([id number]) on 06/08/2023 11:12:33 AM Referred By: Blas Valentine Confirmed By:Austin Keith
[2023-06-08] MEDS: FAMOTIDINE 20 MG in SYRINGE 3 ML IV SCH (12:09)
[2023-06-08] MEDS: CIPROFLOXACIN / D5W 400 MG/200 ML BAG IV SCH (12:09)
--- NOTE | 2023-06-08 12:46 | Communication Note ---
Date of Service: June 08, 2023 Patient/family then reporting seizure like activity with eyes rolling in back of head/almost unresponsive for a couple of seconds. Per family in room, happened once in past maybe around 2020 and taken to [facility] but negative work up. Will req those records as well Patient currently back to baseline, they state she "snapped right out of it". Discussed labs/moving to monitored bed/MRI brain/EEG/neuro eval. Questions/concerns addressed at this time
--- NOTE | 2023-06-08 13:42 | XRay Report ---
XR lumbar spine 2-3V CLINICAL HISTORY: falls, bowel/bladder incontinence. Low back pain. COMPARISON STUDY: None. FINDINGS: Mild wedging within the lower thoracic spine vertebral bodies is likely chronic. No acute f ractures within the lumbar spine. The visualized sacrum is intact. Mild disc space narrowing at L2-L3 and L3-L4. Moderate disc space narrowing at L5-S1. There is 1 cm of anterolisthesis of L5 on S1. Thi s is likely due to the suspected spondylolysis. IMPRESSION: 1. No acute fractures within the lumbar spine. 2. Mild wedging within the lower thoracic spine vertebral bodies is likely chronic. 3. Bilateral L5 spondylolysis with associated grade 2 anterolisthesis. ACT 112: Negative or not required by law. Electronically signed by: Jose Alberto Cat M.D. 06/08/2023 1:41 PM
[2023-06-08 13:55] LABS: Hemoglobin 10.9 g/dl (12.0-16.0); Mean Corpuscular Hemoglobin 32.6 pg (25.0-34.0); Mean Corpuscular Volume 98.8 fL (80.0-100.0); Mean Platelet Volume 11.1 fL (9.4-12.4); Platelet Count 245 K/uL (130-400); RDW Standard Deviation 54.3 fL (36.4-46.3); Red Blood Count 3.34 M/uL (4.20-5.40); White Blood Count 3.64 K/ul (4.8-10.8)
[2023-06-08 14:18] LABS: Albumin Globulin Ratio 1.1 (0.9-2); Albumin Level 3.2 gm/dl (3.4-5.0); BUN Creatinine Ratio 18.2 (10-20); Bilirubin,Total 0.5 mg/dl (0.2-1.0); Calcium 8.7 mg/dl (8.6-10.3); Creatinine Clr Calc Pharmacy 95.5 ml/min; Est GFR (African American) 115.3 ml/min; Est GFR (Non-African American) 99.4 ml/min; Magnesium 1.7 mg/dl (1.7-2.4); Total Protein 6.2 gm/dl (6.0-8.3)
--- NOTE | 2023-06-08 16:17 | Neurology Consultation ---
Date of Consultation June 08, 2023 Assessment & Plan (1) Near syncope: Plan A 57 year old female with History of down's syndrome and alzheimer dementia with episode of near syncope possibly postprandial in nature as she was eating during the brief episode. The clinical event which was very brief with prompt return to baseline and not witnessed convulsive activity does not sound consistent or suggestive of seizure. Will defre on any additional testing from a neruology standpoint. Would not recommend starting an anti-epileptic medication. Ok to cancel the EEG that was ordered as well. Discussed with sister at bedside and she is agreeable to the plan of care. She had no further questions or concerns. Neurology will sign off for now. History of Present Illness Reason for Consultation: Near syncope Requesting Physician: Margaret Alejo PA-C Attending Physician: Severino Thapa MD History of Present Illness A 57 year old female with Hx of down syndrome, alzheimer dementia, and recent UTI noted to have near syncopal event this afternoon. She was recently admitted for weakness thought due to recent UTI and deconditioning. Noted this afternoon around lunch to have very brieft near LOC with eyes rolling back. Reportedly had similar symptoms in 2020 at [facility] and was evaluated. She was quickly back to her baseline. No history of epilepsy and not on AED's. Allergies Allergy/AdvReac Type Severity Reaction Status Date / Time colchicine Allergy Intermediate Swelling Unverified 06/07/23 20:45 of the Eye Home Medications Medication Instructions Recorded Confirmed Type allopurinol 100 mg tablet 100 mg PO DAILY 05/31/23 06/07/23 History apremilast 30 mg tablet (Otezla) 30 mg PO BID 05/31/23 06/07/23 History ascorbic acid (vitamin C) 500 mg 500 mg PO DAILY 05/31/23 06/07/23 History capsule atorvastatin 20 mg tablet 20 mg PO DAILY 05/31/23 06/07/23 History cholecalciferol (vitamin D3) 125 125 mcg PO DAILY 05/31/23 06/07/23 History mcg (5,000 unit) capsule donepezil 5 mg tablet 5 mg PO DAILY 05/31/23 06/07/23 History glucosamine HCl 1,500 mg tablet 1,500 mg PO DAILY 05/31/23 06/07/23 History levothyroxine 137 mcg capsule 137 mcg PO DAILY 05/31/23 06/07/23 History mecobalamin (vitamin B12) 1,000 1,000 mcg PO DAILY 05/31/23 06/07/23 History mcg chewable tablet ampicillin 500 mg capsule 500 mg PO TID #21 caps 06/03/23 06/07/23 Rx aspirin 81 mg tablet,delayed 81 mg PO DAILY 06/07/23 06/07/23 History release calcipotriene-betamethasone 0.005 1 applic topical DAILY 06/07/23 06/07/23 History %-0.064 % topical ointment clindamycin phosphate 1 % topical 1 applic topical DAILY 06/07/23 06/07/23 History swab cranberry juice 1 ea PO DAILY 06/07/23 06/07/23 History metronidazole 0.75 % topical cream 1 applic topical DAILY 06/07/23 06/07/23 History risperidone 0.25 mg tablet 25 mg PO HS 06/07/23 06/07/23 History Patient History Medical History Alzheimer disease Down syndrome Incontinence No pertinent family history Recurrent UTI Surgical History No pertinent past surgical history Social History Smoking Status: Never smoker Hx Alcohol Use: No Hx Substance Use: No Preferred Language: Amharic Communication Ability: Impaired Stock Or Delivery Clerk Required: No Beliefs That Will Affect Care: None Current Living Situation: Family Other Information That Helps Us Care for You: No Feels Safe at Home: Yes Safety Concerns: Feels Safe At This Time Assistive Devices: Walker Physical Exam Physical Exam: Patient was seen on televideo. She is resting and appears in no distress. Head is atraumatic. Her eyes are open. No tongue abrasion. She is non verbal. No involuntary movements or tremor are seen. Moving upper extremities eqally. Ambulation deferred, Results & Data Vital Signs (Past 12 Hours) Vital Signs Temp Pulse Resp BP Pulse Ox O2 Del Method 06/08/23 07:22 36.0 C L 57 L 18 103/64 97 Room Air Diagnostic Findings CT head non contrast: No acute inctraracranial abnormality.
[2023-06-08] MEDS ORDERED: SODIUM CHLORIDE 0.9% 1000ML 500 ML IV ONE (16:40)
[2023-06-08] MEDS: ENOXAPARIN INJ 40 MG/0.4 ML SYR SQ SCH (23:35)
[2023-06-08] MEDS: risperiDONE 0.5 MG TABLET PO SCH (23:35)
[2023-06-09] MEDS: CIPROFLOXACIN / D5W 400 MG/200 ML BAG IV SCH ×3 (01:01→23:56)
[2023-06-09] MEDS: LEVOTHYROXINE SODIUM 137 MCG TABLET PO SCH (05:58)
[2023-06-09 06:58] LABS: Basophils # (auto) 0.04 K/uL (0-0.2); Basophils % (auto) 1.4 %; Eosinophils # (auto) 0.02 K/uL (0-0.50); Eosinophils % (auto) 0.7 %; Hematocrit (blood only) 35.3 % (37.0-47.0); Hemoglobin 11.9 g/dl (12.0-16.0); Immature Granulocytes # (auto) 0.01 K/uL (0.01-0.20); Immature Granulocytes % (auto) 0.3 %; Lymphocytes # (auto) 0.86 K/uL (1.2-3.4); Lymphocytes % (auto) 29.3 %; Mean Corpuscular Hemoglobin 32.8 pg (25.0-34.0); Mean Corpuscular Hgb Conc 33.7 g/dL (32.0-36.0); Mean Corpuscular Volume 97.2 fL (80.0-100.0); Mean Platelet Volume 10.5 fL (9.4-12.4); Monocytes # (auto) 0.42 K/uL (0.11-0.59); Monocytes % (auto) 14.3 %; Neutrophils # (auto) 1.59 K/uL (1.40-6.50); Platelet Count 239 K/uL (130-400); RDW Standard Deviation 53.8 fL (36.4-46.3); Red Blood Count 3.63 M/uL (4.20-5.40); White Blood Count 2.94 K/ul (4.8-10.8)
[2023-06-09 07:16] LABS: BUN Creatinine Ratio 13.6 (10-20); Calcium 8.8 mg/dl (8.6-10.3); Creatinine Clr Calc Pharmacy 95.5 ml/min; Est GFR (African American) 115.3 ml/min; Est GFR (Non-African American) 99.4 ml/min; Potassium 3.7 mmol/L (3.5-5.1)
[2023-06-09] MEDS: ASCORBIC ACID 500 MG TAB PO SCH (07:59)
[2023-06-09] MEDS: ASPIRIN 81 MG ECTAB PO SCH (07:59)
[2023-06-09] MEDS: hydrOXYzine HCl 10 MG TAB PO PRN (07:59)
[2023-06-09] MEDS: DONEPEZIL HCL 5 MG TAB PO SCH (07:59)
[2023-06-09] MEDS: FAMOTIDINE 20 MG in SYRINGE 3 ML IV SCH (07:59)
[2023-06-09] MEDS: allopurinoL 100 MG TAB PO SCH (07:59)
[2023-06-09] MEDS: CYANOCOBALAMIN (B-12) 500 MCG TABLET PO SCH (08:02)
[2023-06-09] MEDS: CHOLECALCIFEROL 5,000 UNITS 125 MCG TAB PO SCH (08:06)
--- NOTE | 2023-06-09 08:24 | Hospitalist Progress Note ---
Date of Service June 09, 2023 Assessment & Plan (1) Drug rash: Plan: Rash, suspect drug rash 2/2 ampicillin Patient diagnosed with Enterococcus UTI in the preceding week, was able to tolerate 3 of 7 days of ampicillin but developed a rash on her chest and rapid progressive fatigue immediately after starting antibiotic. Procal .05 No leukocytosis/concurrent UTi or other viral symptoms IMPROVING Holding further ampicillin --> placed on Cipro (sensitive per 05/31 cx/s) and family stated tolerated in past. On day 3 of treatment. Will plan for 1 more day to complete 7 day course Pepcid IV added for reflux/itching, hydroxyzine available prn Prednisone 20mg x1 today, then daily for additional relief/resolution PT/OT consulted -- will see if able to attempt Phyllis for balance issues Possible pre-syncopal episode/reports possible seizure activity yesterday afternoon. Discussed w/ Neuro, no seizure suspected, EEG cancelled. MRI wanted by family and will be completed later today. ECHO pending for completeness DVT prophylaxis: Lovenox SQ while inpatient (2) Weakness: Plan: suspected 2nd to UTI/deconditioning, drug reaction CT head negative on admission. CTA head/neck w/o aneurysm. noted incidental aberrant L subclavian artery. Incontinent of urine reported at baseline, however per family worsening/ongoing issue w/ falls over past 3-5 months Lumbar spine imaging obtained for incontinence issues/recent falls 1. No acute fractures within the lumbar spine. 2. Mild wedging within the lower thoracic spine vertebral bodies is likely chronic. 3. Bilateral L5 spondylolysis with associated grade 2 anterolisthesis. abx treatment as above, therapy consults to be undertaken asked Dr Read to see if able to review xray if possible, holding off MRI at this time (3) Recurrent UTI: Plan: repeat urine cx negative. abx as above to complete course (4) Down syndrome: Plan: Downs/Mood Disorder/Alzheimers - Risperidone 25mg qHS (5) Alzheimer disease: (6) LILIBETH (obstructive sleep apnea): Plan: LILIBETH CPAP HS -- family brought in for use last night. Order placed to use home unit (7) Near syncope: Plan: ECHO pending for completeness (8) Hypothyroidism: Plan: Hypothyroidism Continue Synthroid 137mcg daily TSH wnl on repeat (9) Psoriasis: Plan: Psoriasis - Apremilast BID continued Hyperlipidemia Aspirin, atorvastatin continued Plan changed to full admit, prednisone for assistance w/ rash mri for completeness discussed if negative/rash resolved, will complete course abx for UTI tomorrow and likely discharge Admission and Anticipated Discharge Date Admission Date: June 07, 2023 Supervising Physician Co-Signing Physician Notes The patient was not seen by me. The chart was reviewed. Case discussed with JESUSITA Steen. Agree with assessment and plan Subjective eval this afternoon, family at bedside. reporting a little more sleepy this morning but improving this afternoon. discussed consultation with neurology yesterday, they would like MRI to be obtained -- hopefully this evening. Mouth a little dry, provided additional ice water. Rash improving, discussed giving some prednisone to help get this resolved -- they are in agreement. Xray lumbar spine without acute fracture. Family at bedside , discussed with falls, inquiring about otoliths/possible phyllis maneuvers.Asked RN to call PT and ask if therapist able to attempt phyllis maneuvers when seen. Questions/concerns addressed at this time. Physical Exam Physical Exam: General: WD/WN female sitting up in bed, watching movie on tablet, NAD, family at bedside HEENT: rash to face/chest IMPROVING, trachea midline without deviation Resp: no distress/cough, poor effort at times, no wheezing/rales, on room air 97% CV: regular rate/rhythm, no significant m/r/g, no pitting edema/calf tenderness GI: +BS, soft/NT ; no rivas MSK/Neuro: generalized weakness, decreased dorsiflexion/plantar flexion (but equal bilaterally) Psych: alert to person/place, cooperative with exam Alzheimer at baseline/downs syndrome Results & Data Results & Data Vital Signs (Past 12 Hours) Vital Signs Temp Pulse Pulse Resp BP BP Pulse Ox 06/09/23 08:10 36.5 C 73 18 104/65 95 06/09/23 07:26 72 06/09/23 03:12 36.3 C L 81 18 127/73 93 06/08/23 22:01 90 06/08/23 22:00 06/08/23 23:34 36.9 C 66 18 112/70 97 O2 Del Method 06/09/23 08:10 Room Air 06/09/23 07:26 06/09/23 03:12 Room Air, CPAP 06/08/23 22:01 06/08/23 22:00 Nasal CPAP 06/08/23 23:34 Room Air, CPAP Laboratory Results 06/09/23 06/09/23 06/08/23 Range/Units 06:21 06:21 15:37 WBC 2.94 L (4.8-10.8) K/ul RBC 3.63 L (4.20-5.40) M/uL Hgb 11.9 L (12.0-16.0) g/dl Hct 35.3 L (37.0-47.0) % MCV 97.2 (80.0-100.0) fL MCH 32.8 (25.0-34.0) pg MCHC 33.7 (32.0-36.0) g/dL RDW Std Deviation 53.8 H (36.4-46.3) fL RDW Coeff of Kevin 15.0 H (11.5-14.5) % Plt Count 239 (130-400) K/uL MPV 10.5 (9.4-12.4) fL Immature Gran % (Auto) 0.3 % Neut % (Auto) 54.0 % Lymph % (Auto) 29.3 % [place] % (Auto) 14.3 % Eos % (Auto) 0.7 % Baso % (Auto) 1.4 % Neut # (Auto) 1.59 (1.40-6.50) K/uL Lymph # (Auto) 0.86 L (1.2-3.4) K/uL [place] # (Auto) 0.42 (0.11-0.59) K/uL Eos # (Auto) 0.02 (0-0.50) K/uL Baso # (Auto) 0.04 (0-0.2) K/uL Immature Gran # (Auto) 0.01 (0.01-0.20) K/uL Sodium 137 (136-145) mmol/L Potassium 3.7 (3.5-5.1) mmol/L Chloride 106 (98-107) mmol/L Carbon Dioxide 24 (21-32) mmol/L Anion Gap 7 (3-11) BUN 9 (6-23) mg/dl Creatinine 0.66 (0.6-1.2) mg/dl Est Cr Clr Drug Dosing 95.5 ml/min Est GFR ( Amer) 115.3 ml/min Est GFR (Non-Af Amer) 99.4 ml/min BUN/Creatinine Ratio 13.6 (10-20) Glucose 121 H (70-99(Fasting)) mg/dl Lactate 1.4 (0.4-2.0) mmol/L Calcium 8.8 (8.6-10.3) mg/dl Magnesium (1.7-2.4) mg/dl Total Bilirubin (0.2-1.0) mg/dl AST (13-39) U/L ALT (7-52) U/L Alkaline Phosphatase (34-104) U/L Total Protein (6.0-8.3) gm/dl Albumin (3.4-5.0) gm/dl Globulin (2.5-4.0) gm/dl Albumin/Globulin Ratio (0.9-2) Prolactin ng/ml 06/08/23 06/08/23 06/08/23 Range/Units 13:34 13:34 13:34 WBC 3.64 L (4.8-10.8) K/ul RBC 3.34 L (4.20-5.40) M/uL Hgb 10.9 L (12.0-16.0) g/dl Hct 33.0 L (37.0-47.0) % MCV 98.8 (80.0-100.0) fL MCH 32.6 (25.0-34.0) pg MCHC 33.0 (32.0-36.0) g/dL RDW Std Deviation 54.3 H (36.4-46.3) fL RDW Coeff of Kevin 15.0 H (11.5-14.5) % Plt Count 245 (130-400) K/uL MPV 11.1 (9.4-12.4) fL Immature Gran % (Auto) % Neut % (Auto) % Lymph % (Auto) % [place] % (Auto) % Eos % (Auto) % Baso % (Auto) % Neut # (Auto) (1.40-6.50) K/uL Lymph # (Auto) (1.2-3.4) K/uL [place] # (Auto) (0.11-0.59) K/uL Eos # (Auto) (0-0.50) K/uL Baso # (Auto) (0-0.2) K/uL Immature Gran # (Auto) (0.01-0.20) K/uL Sodium 137 (136-145) mmol/L Potassium 4.0 (3.5-5.1) mmol/L Chloride 105 (98-107) mmol/L Carbon Dioxide 23 (21-32) mmol/L Anion Gap 9 (3-11) BUN 12 (6-23) mg/dl Creatinine 0.66 (0.6-1.2) mg/dl Est Cr Clr Drug Dosing 95.5 ml/min Est GFR ( Amer) 115.3 ml/min Est GFR (Non-Af Amer) 99.4 ml/min BUN/Creatinine Ratio 18.2 (10-20) Glucose 162 H (70-99(Fasting)) mg/dl Lactate 3.2 H* (0.4-2.0) mmol/L Calcium 8.7 (8.6-10.3) mg/dl Magnesium 1.7 (1.7-2.4) mg/dl Total Bilirubin 0.5 (0.2-1.0) mg/dl AST 14 (13-39) U/L ALT 10 (7-52) U/L Alkaline Phosphatase 86 (34-104) U/L Total Protein 6.2 (6.0-8.3) gm/dl Albumin 3.2 L (3.4-5.0) gm/dl Globulin 3.0 (2.5-4.0) gm/dl Albumin/Globulin Ratio 1.1 (0.9-2) Prolactin ng/ml 06/08/23 Range/Units 13:34 WBC (4.8-10.8) K/ul RBC (4.20-5.40) M/uL Hgb (12.0-16.0) g/dl Hct (37.0-47.0) % MCV (80.0-100.0) fL MCH (25.0-34.0) pg MCHC (32.0-36.0) g/dL RDW Std Deviation (36.4-46.3) fL RDW Coeff of Kevin (11.5-14.5) % Plt Count (130-400) K/uL MPV (9.4-12.4) fL Immature Gran % (Auto) % Neut % (Auto) % Lymph % (Auto) % [place] % (Auto) % Eos % (Auto) % Baso % (Auto) % Neut # (Auto) (1.40-6.50) K/uL Lymph # (Auto) (1.2-3.4) K/uL [place] # (Auto) (0.11-0.59) K/uL Eos # (Auto) (0-0.50) K/uL Baso # (Auto) (0-0.2) K/uL Immature Gran # (Auto) (0.01-0.20) K/uL Sodium (136-145) mmol/L Potassium (3.5-5.1) mmol/L Chloride (98-107) mmol/L Carbon Dioxide (21-32) mmol/L Anion Gap (3-11) BUN (6-23) mg/dl Creatinine (0.6-1.2) mg/dl Est Cr Clr Drug Dosing ml/min Est GFR ( Amer) ml/min Est GFR (Non-Af Amer) ml/min BUN/Creatinine Ratio (10-20) Glucose (70-99(Fasting)) mg/dl Lactate (0.4-2.0) mmol/L Calcium (8.6-10.3) mg/dl Magnesium (1.7-2.4) mg/dl Total Bilirubin (0.2-1.0) mg/dl AST (13-39) U/L ALT (7-52) U/L Alkaline Phosphatase (34-104) U/L Total Protein (6.0-8.3) gm/dl Albumin (3.4-5.0) gm/dl Globulin (2.5-4.0) gm/dl Albumin/Globulin Ratio (0.9-2) Prolactin 12.50 ng/ml Diagnostic Findings Lumbar Spine X-Ray 06/08/23 10:14 XR lumbar spine 2-3V CLINICAL HISTORY: falls, bowel/bladder incontinence. Low back pain. COMPARISON STUDY: None. FINDINGS: Mild wedging within the lower thoracic spine vertebral bodies is likely chronic. No acute fractures within the lumbar spine. The visualized sacrum is intact. Mild disc space narrowing at L2-L3 and L3-L4. Moderate disc space narrowing at L5-S1. There is 1 cm of anterolisthesis of L5 on S1. This is likely due to the suspected spondylolysis. IMPRESSION: 1. No acute fractures within the lumbar spine. 2. Mild wedging within the lower thoracic spine vertebral bodies is likely chronic. 3. Bilateral L5 spondylolysis with associated grade 2 anterolisthesis. ACT 112: Negative or not required by law. Electronically signed by: Jose Alberto Cat M.D. 06/08/2023 1:41 PM PG Care Time/CCT Total # of Minutes Spent Total Time Spent with Patient: Total time spent is greater than 50% in coordination of care (as documented) at patient's floor/unit and/or counseling patient: Coding Level of Care Code 36940 SUB INP/OBS CARE 3/50MIN Diagnoses Drug rash L27.0 Weakness R53.1 Recurrent UTI N39.0 Down syndrome Q90.9 Alzheimer disease G30.9; F02.80 LILIBETH (obstructive sleep apnea) G47.33 Near syncope R55 Hypothyroidism E03.9 Psoriasis L40.9
[2023-06-09] MEDS: ATORVASTATIN 20 MG TAB PO SCH (08:45)
[2023-06-09] MEDS ORDERED: predniSONE 20 MG TAB PO STA (14:02)
--- NOTE | 2023-06-09 16:04 | XCELERA ---
[id number]
[2023-06-09] MEDS: ACETAMINOPHEN 325 MG TAB PO PRN (16:35)
[2023-06-09] MEDS ORDERED: LORazepam 2 MG/1 ML VIAL IV STA (17:50)
[2023-06-09] MEDS ORDERED: IBUPROFEN 600 MG TAB PO STA (17:53)
[2023-06-09 19:57] LABS: Adenovirus PCR Not Detected (NotDetected); Bordetella parapertussis PCR Not Detected (NotDetected); Bordetella pertussis PCR Not Detected (NotDetected); Chlamydia pneumoniae PCR Not Detected (NotDetected); Coronavirus 229E PCR Not Detected (NotDetected); Coronavirus CoV-2 (COVID19)PCR Not Detected (NotDetected); Coronavirus HKU1 PCR Not Detected (NotDetected); Coronavirus NL63 PCR Not Detected (NotDetected); Coronavirus OC43PCR Not Detected (NotDetected); Human Metapneumovirus PCR Not Detected (NotDetected); Influenza A PCR Not Detected (NotDetected); Influenza B PCR Not Detected (NotDetected); Mycoplasma pneumoniae PCR Not Detected (NotDetected); Parainfluenza Virus 1 PCR Not Detected (NotDetected); Parainfluenza Virus 2 PCR Not Detected (NotDetected); Parainfluenza Virus 3 PCR Not Detected (NotDetected); Parainfluenza Virus 4 PCR Not Detected (NotDetected); Respiratory Syncytial VirusPCR Not Detected (NotDetected); Rhinovirus/Enterovirus PCR Not Detected (NotDetected)
[2023-06-09] MEDS: ENOXAPARIN INJ 40 MG/0.4 ML SYR SQ SCH (21:39)
[2023-06-09] MEDS: risperiDONE 0.5 MG TABLET PO SCH (21:40)
[2023-06-09] MEDS: OTEZLA 30 MG PO SCH (21:40)
[2023-06-09] MEDS ORDERED: LORazepam 2 MG/1 ML VIAL IV PRN (22:13)
[2023-06-09] MEDS ORDERED: GADOBUTROL 65ML VIAL IV ONE (23:26)
--- NOTE | 2023-06-10 01:12 | Magnetic Resonance Report ---
Exam(s): MRI HEAD W/WO Contrast IV Amt: 9.5 gadavist EXAM: MR Head Without and With Intravenous Contrast CLINICAL HISTORY: Reason for exam: seizure activity, weakness. TECHNIQUE: Magnetic resonance images of the head/brain without and with intravenous contrast in multiple planes. CONTRAST: Patient received 9.5 gadavist of IV contrast COMPARISON: CT brain dated 06/07/2023. FINDINGS: Brain: Mild to moderate generalized brain atrophy. Bilateral partially calcified basal ganglia. Several tiny punctate areas of increased signal within the deep and subcortical white matter most compatible with sequela of chronic headaches or minor microangiopathic white matter disease. No hemorrhage. Ventricles: Unremarkable. No ventriculomegaly. Bones/joints: Unremarkable. Sinuses: Unremarkable as visualized. No acute sinusitis. Mastoid air cells: Question fluid within the bilateral mastoids which may indicate effusions. Orbits: Unremarkable as visualized. IMPRESSION: Chronic changes as described. No acute stroke or intracranial hemorrhage. No intracranial enhancing lesion. Electronically signed by: Lisa Morales MD 06/10/23 01:11 AM
[2023-06-10] MEDS: LEVOTHYROXINE SODIUM 137 MCG TABLET PO SCH (06:32)
[2023-06-10 07:22] LABS: BUN Creatinine Ratio 16.3 (10-20); Creatinine Clr Calc Pharmacy 78.2 ml/min; Est GFR (African American) 96.2 ml/min; Potassium 4.1 mmol/L (3.5-5.1)
--- NOTE | 2023-06-10 07:47 | Hospitalist Progress Note ---
Date of Service June 10, 2023 Assessment & Plan (1) Drug rash: Plan: Rash, suspect drug rash 2/2 ampicillin Patient diagnosed with Enterococcus UTI in the preceding week, was able to tolerate 3 of 7 days of ampicillin but developed a rash on her chest and rapid progressive fatigue immediately after starting antibiotic. Procal .05 No leukocytosis/concurrent UTi or other viral symptoms IMPROVING Prednisone 20mg daily ordered starting 06/09, will plan to dc tomorrow if almost resolved Placed on Cipro IV to complete course for UTI (repeat cx negative) -- completed total 7 day course after today's dose Vistaril available as needed for itching PT/OT consulted, no inpatient therapy recommended at present Lovenox SQ while inpatient for DVT prophylaxis Of note, fever to 39.3C yesterday however patient appeared to be doing well. Antipyretic given and no further fever. Blood cultures obtained and pending CXR w/o acute process, no consolidation/PNA KUB did note possible ileus -- IVF provided -- multiple BM overnight reported. Increased bowel regimen and will monitor Obtaining xray L hip given pain reported. Can consdier CT for eval occult fracture given fall as well/slight edema to lateral hip on exam (2) Weakness: Plan: suspected 2nd to UTI/deconditioning, drug reaction CT head negative on admission. CTA head/neck w/o aneurysm. noted incidental aberrant L subclavian artery. Incontinent of urine reported at baseline, however per family worsening/ongoing issue w/ falls over past 3-5 months Lumbar spine imaging obtained for incontinence issues/recent falls 1. No acute fractures within the lumbar spine. 2. Mild wedging within the lower thoracic spine vertebral bodies is likely chronic. 3. Bilateral L5 spondylolysis with associated grade 2 anterolisthesis. abx treatment as above, now complete per family at bedside, patient did attempt to get up/ambulate and seemed stronger but pain w/ ambulation reported to L hip Imaging for hip to be obtained, can consider CT to r/o occult fracture otherwise MRI brain completed per discussion w/ family -- no acute CVA. Did have prior ear infection/treatment w/ drops at home. No drainage from ears appreciated but cou ld consider adding topical ciprodex vs other if needed. Holding off for now Discussed/ xray lumbar spine w/ Dr Read. No acute fracture. Does have padmini spondy but doesn't feel need to obtain MRI at present PT/OT consulted (3) Recurrent UTI: Plan: repeat urine cx negative. abx as above to complete course 06/10 (4) Down syndrome: Plan: Downs/Mood Disorder/Alzheimers - Risperidone 25mg qHS (5) Alzheimer disease: (6) LILIBETH (obstructive sleep apnea): Plan: LILIBETH CPAP HS -- family brought in for use last night. Order placed to use home unit (7) Near syncope: Plan: ECHO pending for completeness -- no prior comparison. No significant valvular heart disease. Does note mild-mod RV dilation. NO elevated RSVP on echo or hypotension/hypoxia to suggest PE at present Appears improved today -- tx as outlined above (8) Hypothyroidism: Plan: Hypothyroidism Continue Synthroid 137mcg daily TSH wnl on repeat (9) Psoriasis: Plan: Psoriasis - Apremilast BID continued Hyperlipidemia Aspirin, atorvastatin continued Plan XRAY FOR L HIP FOR PAIN REPORTED, CONSIDER CT TO R/O OCCULT FX IF NEGATIVE POTENTIAL DISCHARGE TOMORROW IF NO FURTHER FEVERS/CULTURES NO GROWTH TO DATE BUT WILL CONTINUE TO MONITOR Admission and Anticipated Discharge Date Admission Date: June 09, 2023 Supervising Physician Co-Signing Physician Notes The patient was not seen by me. The chart was reviewed. Case discussed with JESUSITA Steen. Agree with assessment and plan Subjective eval after lunch, was attempting to rest worked with therapy, reports of L pain/issues with weight bearing. Discussed obtaining dedicated Xray but if negative can consider CT to rule out occult fracture. Had fever last evening, unknown cause, CXR clear.KUB w/ possible ileus, no grimacing on exam of abdomen, moving bowels overnight. Discussed will order aggressive bowel regimen to prevent issues ongoing. Sisters have hx bursitis requiring injection, inquiring if shira may ne having something similar. Questions/concerns addressed at this time. Physical Exam Physical Exam: General: WD/WN female resting in bed, family at bedside reporting much better today and wanting to ambulate but issues w/ L hip pain HEENT: rash to face/chest MUCH improved today, trachea midline without deviation Resp: no distress/cough, poor effort at times, no wheezing/rales, on room air 97% CV: regular rate/rhythm, no significant m/r/g, no pitting edema/calf tenderness GI: +BS, soft/NT ; no rivas MSK/Neuro: generalized weakness, decreased dorsiflexion/plantar flexion (but equal bilaterally) Slight edema lateral L hip, no overt hematoma Psych: alert to person/place, cooperative with exam Alzheimer at baseline/downs syndrome Results & Data Results & Data Vital Signs (Past 12 Hours) Vital Signs Temp Pulse Pulse Resp BP Pulse Ox O2 Del Method 06/10/23 07:35 54 L 06/10/23 07:27 36.4 C L 51 L 18 119/72 95 Room Air 06/10/23 00:00 82 06/10/23 02:57 37.1 C 83 16 106/56 L 95 Room Air, CPAP 06/09/23 20:00 Room Air 06/09/23 22:01 37.3 C 85 18 104/63 93 Room Air Laboratory Results 06/10/23 06/10/23 06/09/23 Range/Units 06:27 06:27 18:43 WBC 5.97 (4.8-10.8) K/ul RBC 3.72 L (4.20-5.40) M/uL Hgb 12.2 (12.0-16.0) g/dl Hct 37.8 (37.0-47.0) % MCV 101.6 H (80.0-100.0) fL MCH 32.8 (25.0-34.0) pg MCHC 32.3 (32.0-36.0) g/dL RDW Std Deviation 55.6 H (36.4-46.3) fL RDW Coeff of Kevin 14.8 H (11.5-14.5) % Plt Count 263 (130-400) K/uL MPV 10.8 (9.4-12.4) fL Immature Gran % (Auto) 0.2 % Neut % (Auto) 64.8 % Lymph % (Auto) 26.0 % [place] % (Auto) 8.5 % Eos % (Auto) 0.0 % Baso % (Auto) 0.5 % Neut # (Auto) 3.87 (1.40-6.50) K/uL Lymph # (Auto) 1.55 (1.2-3.4) K/uL Independence # (Auto) 0.51 (0.11-0.59) K/uL Eos # (Auto) 0.00 (0-0.50) K/uL Baso # (Auto) 0.03 (0-0.2) K/uL Immature Gran # (Auto) 0.01 (0.01-0.20) K/uL Sodium 140 (136-145) mmol/L Potassium 4.1 (3.5-5.1) mmol/L Chloride 109 H (98-107) mmol/L Carbon Dioxide 26 (21-32) mmol/L Anion Gap 5 (3-11) BUN 13 (6-23) mg/dl Creatinine 0.80 (0.6-1.2) mg/dl Est Cr Clr Drug Dosing 78.2 ml/min Est GFR ( Amer) 96.2 ml/min Est GFR (Non-Af Amer) 83.0 ml/min BUN/Creatinine Ratio 16.3 (10-20) Glucose 104 H (70-99(Fasting)) mg/dl Calcium 9.0 (8.6-10.3) mg/dl Adenovirus (PCR) Not Detected (NotDetected) B. pertussis DNA (PCR) Not Detected (NotDetected) B.parapertussis DNA PCR Not Detected (NotDetected) C. pneumoniae DNA (PCR) Not Detected (NotDetected) Coronavirus OC43 (PCR) Not Detected (NotDetected) Coronavirus HKU1 (PCR) Not Detected (NotDetected) Coronavirus 229E (PCR) Not Detected (NotDetected) SARS-CoV-2 (PCR) Not Detected (NotDetected) Coronavirus NL63 (PCR) Not Detected (NotDetected) Human Metapneumovir PCR Not Detected (NotDetected) Influenza Type A (PCR) Not Detected (NotDetected) Influenza Type B (PCR) Not Detected (NotDetected) M. pneumoniae (PCR) Not Detected (NotDetected) Parainfluenza 1 (PCR) Not Detected (NotDetected) Parainfluenza 2 (PCR) Not Detected (NotDetected) Parainfluenza 3 (PCR) Not Detected (NotDetected) Parainfluenza 4 (PCR) Not Detected (NotDetected) RSV (PCR) Not Detected (NotDetected) Entero/Rhino (PCR) Not Detected (NotDetected) Diagnostic Findings Brain MRI 06/09/23 10:19 Exam(s): MRI HEAD W/WO Contrast IV Amt: 9.5 gadavist EXAM: MR Head Without and With Intravenous Contrast CLINICAL HISTORY: Reason for exam: seizure activity, weakness. TECHNIQUE: Magnetic resonance images of the head/brain without and with intravenous contrast in multiple planes. CONTRAST: Patient received 9.5 gadavist of IV contrast COMPARISON: CT brain dated 06/07/2023. FINDINGS: Brain: Mild to moderate generalized brain atrophy. Bilateral partially calcified basal ganglia. Several tiny punctate areas of increased signal within the deep and subcortical white matter most compatible with sequela of chronic headaches or minor microangiopathic white matter disease. No hemorrhage. Ventricles: Unremarkable. No ventriculomegaly. Bones/joints: Unremarkable. Sinuses: Unremarkable as visualized. No acute sinusitis. Mastoid air cells: Question fluid within the bilateral mastoids which may indicate effusions. Orbits: Unremarkable as visualized. IMPRESSION: Chronic changes as described. No acute stroke or intracranial hemorrhage. No intracranial enhancing lesion. Electronically signed by: Lisa Moarles MD 06/10/23 01:11 AM Chest X-Ray 06/09/23 17:50 XR chest 1V portable HISTORY: fever COMPARISON: Chest 06/07/2023. FINDINGS: There are low lung volumes. Slightly rotated study. No new focal lung consolidations to suggest pneumonia. No evidence for pulmonary edema. The cardiac silhouette remains mildly enlarged. No acute fractures identified. IMPRESSION: No significant change compared to the prior study. No acute process. ACT 112: Negative or not required by law. Electronically signed by: Jose Alberto Cat M.D. 06/10/2023 8:12 AM KUB X-Ray 06/09/23 17:50 KUB HISTORY: fever COMPARISON: None. FINDINGS: Dilated gas-filled loops of bowel seen within the abdomen. The majority of these gas-filled loops of bowel appear to represent colon and therefore favors an ileus. A developing bowel obstruction is not excluded. No renal calculi. No ureteral calculi. No pneumoperitoneum or pneumatosis. IMPRESSION: Dilated gas-filled loops of bowel seen within the abdomen. The majority of these gas-filled loops of bowel appear to represent colon and therefore favors an ileus. A developing bowel obstruction is not excluded. Continued follow-up recommended. ACT 112: Negative or not required by law. Electronically signed by: Jose Alberto Cat M.D. 06/10/2023 8:09 AM KUB X-Ray 06/10/23 08:49 KUB HISTORY: f/u ileus COMPARISON: KUB 06/09/2023. FINDINGS: Slight improvement in the dilated gas-filled loops of large and small bowel seen throughout the abdomen. This favors an ileus. No renal calculi. No ureteral calculi. No pneumoperitoneum or pneumatosis. IMPRESSION: Slight improvement in the dilated gas-filled loops of large and small bowel seen throughout the abdomen. This favors an ileus. Continued follow-up recommended. ACT 112: Negative or not required by law. Electronically signed by: Jose Alberto Cat M.D. 06/10/2023 12:01 PM PG Care Time/CCT Total # of Minutes Spent Total Time Spent with Patient: Total time spent is greater than 50% in coordination of care (as documented) at patient's floor/unit and/or counseling patient: Coding Level of Care Code 84748 SUB INP/OBS CARE 3/50MIN Diagnoses Drug rash L27.0 Weakness R53.1 Recurrent UTI N39.0 Down syndrome Q90.9 Alzheimer disease G30.9; F02.80 LILIBETH (obstructive sleep apnea) G47.33 Near syncope R55 Hypothyroidism E03.9 Psoriasis L40.9
[2023-06-10] MEDS: ASPIRIN 81 MG ECTAB PO SCH (08:06)
[2023-06-10] MEDS: ATORVASTATIN 20 MG TAB PO SCH (08:06)
[2023-06-10] MEDS: predniSONE 20 MG TAB PO SCH (08:06)
[2023-06-10] MEDS: CHOLECALCIFEROL 5,000 UNITS 125 MCG TAB PO SCH (08:07)
[2023-06-10] MEDS: ASCORBIC ACID 500 MG TAB PO SCH (08:07)
[2023-06-10] MEDS: allopurinoL 100 MG TAB PO SCH (08:07)
[2023-06-10] MEDS: CALCIPOTRIENE TOP SCH (08:07)
[2023-06-10] MEDS: OTEZLA 30 MG PO SCH ×2 (08:07→20:10)
[2023-06-10] MEDS: hydrOXYzine HCl 10 MG TAB PO PRN (08:07)
[2023-06-10] MEDS: BETAMETHASONE DIPROPIONATE TOP SCH (08:07)
[2023-06-10] MEDS: DONEPEZIL HCL 5 MG TAB PO SCH (08:07)
[2023-06-10] MEDS: CYANOCOBALAMIN (B-12) 500 MCG TABLET PO SCH (08:08)
--- NOTE | 2023-06-10 08:11 | XRay Report ---
KUB HISTORY: fever COMPARISON: None. FINDINGS: Dilated gas-filled loops of bowel seen within the abdomen. The majority of these gas-filled loops of bowel appear to represent colon and therefore favors an ileus. A developing bowel obstructi on is not excluded. No renal calculi. No ureteral calculi. No pneumoperitoneum or pneumatosis. IMPRESSION: Dilated gas-filled loops of bowel seen within the abdomen. The majority of these gas-filled loops of bowel appear to represent colon and therefore favors an ileus. A developing bowel obstruction is not excluded. Continued follow-up recommended. ACT 112: Negative or not required by law. Electronically signed by: Jose Alberto Cat M.D. 06/10/2023 8:09 AM
[2023-06-10] MEDS: FAMOTIDINE 20 MG in SYRINGE 3 ML IV SCH (08:12)
--- NOTE | 2023-06-10 08:14 | XRay Report ---
XR chest 1V portable HISTORY: fever COMPARISON: Chest 06/07/2023. FINDINGS: There are low lung volumes. Slightly rotated study. No new focal lung consolidations to sug gest pneumonia. No evidence for pulmonary edema. The cardiac silhouette remains mildly enlarged. No a cute fractures identified. IMPRESSION: No significant change compared to the prior study. No acute process. ACT 112: Negative or not required by law. Electronically signed by: Jose Alberto Cat M.D. 06/10/2023 8:12 AM
[2023-06-10] MEDS ORDERED: SODIUM CHLORIDE 0.9% 500 ML IV SCH (09:00)
[2023-06-10 09:30] LABS: Basophils # (auto) 0.03 K/uL (0-0.2); Basophils % (auto) 0.5 %; Hematocrit (blood only) 37.8 % (37.0-47.0); Hemoglobin 12.2 g/dl (12.0-16.0); Immature Granulocytes # (auto) 0.01 K/uL (0.01-0.20); Immature Granulocytes % (auto) 0.2 %; Lymphocytes # (auto) 1.55 K/uL (1.2-3.4); Mean Corpuscular Hemoglobin 32.8 pg (25.0-34.0); Mean Corpuscular Hgb Conc 32.3 g/dL (32.0-36.0); Mean Corpuscular Volume 101.6 fL (80.0-100.0); Mean Platelet Volume 10.8 fL (9.4-12.4); Monocytes # (auto) 0.51 K/uL (0.11-0.59); Monocytes % (auto) 8.5 %; Neutrophils # (auto) 3.87 K/uL (1.40-6.50); Neutrophils % (auto) 64.8 %; Platelet Count 263 K/uL (130-400); RDW Coefficient of Variation 14.8 % (11.5-14.5); RDW Standard Deviation 55.6 fL (36.4-46.3); Red Blood Count 3.72 M/uL (4.20-5.40); White Blood Count 5.97 K/ul (4.8-10.8)
[2023-06-10] MEDS: CIPROFLOXACIN / D5W 400 MG/200 ML BAG IV SCH (10:05)
--- NOTE | 2023-06-10 12:02 | XRay Report ---
KUB HISTORY: f/u ileus COMPARISON: KUB 06/09/2023. FINDINGS: Slight improvement in the dilated gas-filled loops of large and small bowel seen throughout the abdomen. This favors an ileus. No renal calculi. No ureteral calculi. No pneumoperitoneum or pn eumatosis. IMPRESSION: Slight improvement in the dilated gas-filled loops of large and small bowel seen throughout the abdom en. This favors an ileus. Continued follow-up recommended. ACT 112: Negative or not required by law. Electronically signed by: Jose Alberto Cat M.D. 06/10/2023 12:01 PM
[2023-06-10] MEDS: DOCUSATE SODIUM/SENNA 50/8.6MG TAB PO SCH (13:26)
--- NOTE | 2023-06-10 15:49 | XRay Report ---
XR hip LT 2V w pelvis CLINICAL HISTORY: L hip pain, s/p falls COMPARISON STUDY: Pelvis 06/07/2023. FINDINGS: Suboptimal evaluation of the left hip due to the patient's body habitus. However, there is no definite fracture or dislocation within the pelvis or hips. The sacrum appears intact. No radiopaq ue foreign bodies. IMPRESSION: No definite fracture or dislocation within the pelvis or hips. ACT 112: Negative or not required by law. Electronically signed by: Jose Alberto Cat M.D. 06/10/2023 3:48 PM
--- NOTE | 2023-06-10 18:57 | CT Scan Report ---
CT hip LT wo con, CT femur LT wo con HISTORY: 57 years-old Female L leg/hip pain s/p fall, eval occult fracture acute pain of the left hi p and thigh status post fall COMPARISON: Pelvis and hip radiographs 06/10/2023 TECHNIQUE: Axial CT images of the left hip and femur were obtained without the use of IV contrast. A dose lowering technique was used consistent with the principals of ALLAN. FINDINGS: HIP: The imaged intrapelvic structures are unremarkable. Urinary bladder wall thickening with partial dist ention. Unremarkable soft tissues without joint effusion. Moderate Dot arthritis of the left hip. No acute fracture, dislocation, suspicious bone lesion or avascular necrosis. FEMUR: Mild to moderate tricompartmental osteoarthritis of the knee. No acute fracture or dislocation. Becky l soft tissues. Small to moderate joint effusion of the knee. Chondrocalcinosis with possible subcent imeter intra-articular loose bodies. IMPRESSION: 1. No acute fracture or dislocation. 2. [id number] joint effusion of the knee. 3. Osteoarthritis of the left knee and hip. ACT 112: Negative or not required by law. The above report was generated using voice recognition software. It may contain grammatical, syntax o r spelling errors. Electronically signed by: Jann Aviles M.D. 06/10/2023 6:55 PM
[2023-06-10] MEDS: risperiDONE 0.5 MG TABLET PO SCH (20:10)
[2023-06-10] MEDS: ENOXAPARIN INJ 40 MG/0.4 ML SYR SQ SCH (20:11)
[2023-06-11] MEDS: LEVOTHYROXINE SODIUM 137 MCG TABLET PO SCH (05:47)
[2023-06-11 07:02] LABS: Basophils # (auto) 0.05 K/uL (0-0.2); Eosinophils # (auto) 0.02 K/uL (0-0.50); Eosinophils % (auto) 0.4 %; Hematocrit (blood only) 35.4 % (37.0-47.0); Hemoglobin 11.7 g/dl (12.0-16.0); Immature Granulocytes # (auto) 0.01 K/uL (0.01-0.20); Immature Granulocytes % (auto) 0.2 %; Lymphocytes # (auto) 1.57 K/uL (1.2-3.4); Lymphocytes % (auto) 32.7 %; Mean Corpuscular Hemoglobin 32.8 pg (25.0-34.0); Mean Corpuscular Hgb Conc 33.1 g/dL (32.0-36.0); Mean Corpuscular Volume 99.2 fL (80.0-100.0); Mean Platelet Volume 10.5 fL (9.4-12.4); Monocytes % (auto) 8.3 %; Neutrophils # (auto) 2.75 K/uL (1.40-6.50); Neutrophils % (auto) 57.4 %; Platelet Count 275 K/uL (130-400); RDW Coefficient of Variation 14.9 % (11.5-14.5); RDW Standard Deviation 54.6 fL (36.4-46.3); Red Blood Count 3.57 M/uL (4.20-5.40)
[2023-06-11 07:18] LABS: Albumin Globulin Ratio 0.9 (0.9-2); BUN Creatinine Ratio 21.9 (10-20); Bilirubin,Total 0.2 mg/dl (0.2-1.0); Calcium 8.9 mg/dl (8.6-10.3); Creatinine Clr Calc Pharmacy 86.1 ml/min; Est GFR (African American) 107.5 ml/min; Est GFR (Non-African American) 92.7 ml/min; Globulin 3.2 gm/dl (2.5-4.0); Potassium 4.3 mmol/L (3.5-5.1); Total Protein 6.2 gm/dl (6.0-8.3)
[2023-06-11 07:43] LABS: Folate (Folic Acid),Ser orPlas 9.42 ng/ml (>5.38)
--- NOTE | 2023-06-11 07:48 | Hospitalist Progress Note ---
Date of Service June 11, 2023 Assessment & Plan (1) Drug rash: Plan: Rash, suspect drug rash 2/2 ampicillin Patient diagnosed with Enterococcus UTI in the preceding week, was able to tolerate 3 of 7 days of ampicillin but developed a rash on her chest and rapid progressive fatigue immediately after starting antibiotic. Procal .05 No leukocytosis/concurrent UTi or other viral symptoms IMPROVING Prednisone 20mg daily ordered starting 06/09, will plan to dc tomorrow if almost resolved Placed on Cipro IV to complete course for UTI (repeat cx negative) -- completed total 7 day course after today's dose Vistaril available as needed for itching PT/OT consulted, no inpatient therapy recommended at present Lovenox SQ while inpatient for DVT prophylaxis Of note, fever to 39.3C 06/09 however patient appeared to be doing well. Antipyretic given and no further fever. Blood cultures obtained and pending CXR w/o acute process, no consolidation/PNA KUB did note possible ileus -- IVF provided -- multiple BM overnight reported. Increased bowel regimen and will monitor. 06/11 KUB on repeat resolved Continued prednisone, rash almost COMPLETELY resolved Imaging of hip negative for acute fracture, does have knee effusion/pesudogout at baseline, prednisone should also help PT/OT consults, family wanting to have patient to [facility] to ensure able to ambulate at home given level of help. No further fever, appearing MUCH better per family, feeding herself, more awake/alert, smiling/interactive. Biofire negative Needing rehab -- messaged CM -- patient needs to be able to take some steps before they will consider accepting her (2) Weakness: Plan: suspected 2nd to UTI/deconditioning, drug reaction CT head negative on admission. CTA head/neck w/o aneurysm. noted incidental aberrant L subclavian artery. Incontinent of urine reported at baseline, however per family worsening/ongoing issue w/ falls over past 3-5 months Lumbar spine imaging obtained for incontinence issues/recent falls 1. No acute fractures within the lumbar spine. 2. Mild wedging within the lower thoracic spine vertebral bodies is likely chronic. 3. Bilateral L5 spondylolysis with associated grade 2 anterolisthesis. abx treatment as above, now complete per family at bedside, patient did attempt to get up/ambulate and seemed stronger but pain w/ ambulation reported to L hip Imaging for hip to be obtained, can consider CT to r/o occult fracture otherwise MRI brain completed per discussion w/ family -- no acute CVA. Did have prior ear infection/treatment w/ drops at home. No drainage from ears appreciated but could consider adding topical ciprodex vs other if needed. Holding off for now Discussed/ xray lumbar spine w/ Dr Read. No acute fracture. Does have padmini spondy but doesn't feel need to obtain MRI at present rec'd continued use of walker w/ ambulation PT/OT consulted (3) Recurrent UTI: Plan: repeat urine cx negative. abx as above completed course 06/10 (4) Down syndrome: Plan: Downs/Mood Disorder/Alzheimers - Risperidone 25mg qHS (5) Alzheimer disease: (6) LILIBETH (obstructive sleep apnea): Plan: LILIBETH CPAP HS -- family brought in for use. Order placed to use home unit (7) Near syncope: Plan: ECHO pending for completeness -- no prior comparison. No significant valvular heart disease. Does note mild-mod RV dilation. NO elevated RSVP on echo or hypotension/hypoxia to suggest PE at present Appears improved today -- tx as outlined above (8) Hypothyroidism: Plan: Hypothyroidism Continue Synthroid 137mcg daily TSH wnl on repeat (9) Psoriasis: Plan: Psoriasis - Apremilast BID continued Hyperlipidemia Aspirin, atorvastatin continued Plan continued inpatient stay Admission and Anticipated Discharge Date Admission Date: June 09, 2023 Supervising Physician Co-Signing Physician Notes The patient was not seen by me. The chart was reviewed. Case discussed with JESUSITA Steen. Agree with assessment and plan Subjective eval this morning, doing much better. alert/sitting upright, feeding herself much better. no further fevers. Stable on tele. Rash almost completely resolved, continued on prednisone. She does have osteoarthritis of hip and could also be helping. No acute fracture. Does have hx pseudogout, follows clinic. Discussed about discharge, CM had discussed [facility] with family. Will follow up on request but likely inpatient through weekend waiting insurance/bed. THey do want her to be able to ambulate as usually just the one sister with her and her works. Rec continued use of walker with ambulation for safety. Physical Exam Physical Exam: General: WD/WN female resting in bed, family at bedside reporting much better today and wanting to ambulate but issues w/ L hip pain HEENT: rash to face/chest MUCH improved today, trachea midline without deviation Resp: no distress/cough, poor effort at times, no wheezing/rales, on room air 97% CV: regular rate/rhythm, no significant m/r/g, no pitting edema/calf tenderness GI: +BS, soft/NT ; no rivas MSK/Neuro: generalized weakness, decreased dorsiflexion/plantar flexion (but equal bilaterally) Slight edema lateral L hip, no overt hematoma Psych: alert to person/place, cooperative with exam Alzheimer at baseline/downs syndrome Results & Data Results & Data Vital Signs (Past 12 Hours) Vital Signs Temp Pulse Pulse Resp BP Pulse Ox O2 Del Method 06/11/23 07:24 36.7 C 64 16 94/62 L 95 Room Air 06/11/23 03:53 37.0 C 86 20 125/58 L 95 Room Air 06/10/23 22:22 91 H 06/11/23 00:08 37.1 C 81 20 123/52 L 96 Room Air 06/10/23 20:15 37.0 C 117 H 22 149/94 H 98 Room Air 06/10/23 19:59 Room Air, CPAP Laboratory Results 06/11/23 06/11/23 06/11/23 Range/Units 08:33 06:29 06:29 WBC (4.8-10.8) K/ul RBC (4.20-5.40) M/uL Hgb (12.0-16.0) g/dl Hct (37.0-47.0) % MCV (80.0-100.0) fL MCH (25.0-34.0) pg MCHC (32.0-36.0) g/dL RDW Std Deviation (36.4-46.3) fL RDW Coeff of Kevin (11.5-14.5) % Plt Count (130-400) K/uL MPV (9.4-12.4) fL Immature Gran % (Auto) % Neut % (Auto) % Lymph % (Auto) % [place] % (Auto) % Eos % (Auto) % Baso % (Auto) % Neut # (Auto) (1.40-6.50) K/uL Lymph # (Auto) (1.2-3.4) K/uL [place] # (Auto) (0.11-0.59) K/uL Eos # (Auto) (0-0.50) K/uL Baso # (Auto) (0-0.2) K/uL Immature Gran # (Auto) (0.01-0.20) K/uL Sodium 141 (136-145) mmol/L Potassium 4.3 (3.5-5.1) mmol/L Chloride 110 H (98-107) mmol/L Carbon Dioxide 25 (21-32) mmol/L Anion Gap 6 (3-11) BUN 16 (6-23) mg/dl Creatinine 0.73 (0.6-1.2) mg/dl Est Cr Clr Drug Dosing 86.1 ml/min Est GFR ( Amer) 107.5 ml/min Est GFR (Non-Af Amer) 92.7 ml/min BUN/Creatinine Ratio 21.9 H (10-20) Glucose 91 (70-99(Fasting)) mg/dl Calcium 8.9 (8.6-10.3) mg/dl Magnesium 2.0 (1.7-2.4) mg/dl Total Bilirubin 0.2 (0.2-1.0) mg/dl AST 18 (13-39) U/L ALT 20 (7-52) U/L Alkaline Phosphatase 75 (34-104) U/L Total Protein 6.2 (6.0-8.3) gm/dl Albumin 3.0 L (3.4-5.0) gm/dl Globulin 3.2 (2.5-4.0) gm/dl Albumin/Globulin Ratio 0.9 (0.9-2) Vitamin B12 949 H (180-914) pg/ml Folate 9.42 (>5.38) ng/ml Lyme Disease IgG Ab Negative (Negative) Lyme Disease IgM Ab Negative (Negative) 06/11/23 Range/Units 06:29 WBC 4.80 (4.8-10.8) K/ul RBC 3.57 L (4.20-5.40) M/uL Hgb 11.7 L (12.0-16.0) g/dl Hct 35.4 L (37.0-47.0) % MCV 99.2 (80.0-100.0) fL MCH 32.8 (25.0-34.0) pg MCHC 33.1 (32.0-36.0) g/dL RDW Std Deviation 54.6 H (36.4-46.3) fL RDW Coeff of Kevin 14.9 H (11.5-14.5) % Plt Count 275 (130-400) K/uL MPV 10.5 (9.4-12.4) fL Immature Gran % (Auto) 0.2 % Neut % (Auto) 57.4 % Lymph % (Auto) 32.7 % [place] % (Auto) 8.3 % Eos % (Auto) 0.4 % Baso % (Auto) 1.0 % Neut # (Auto) 2.75 (1.40-6.50) K/uL Lymph # (Auto) 1.57 (1.2-3.4) K/uL [place] # (Auto) 0.40 (0.11-0.59) K/uL Eos # (Auto) 0.02 (0-0.50) K/uL Baso # (Auto) 0.05 (0-0.2) K/uL Immature Gran # (Auto) 0.01 (0.01-0.20) K/uL Sodium (136-145) mmol/L Potassium (3.5-5.1) mmol/L Chloride (98-107) mmol/L Carbon Dioxide (21-32) mmol/L Anion Gap (3-11) BUN (6-23) mg/dl Creatinine (0.6-1.2) mg/dl Est Cr Clr Drug Dosing ml/min Est GFR ( Amer) ml/min Est GFR (Non-Af Amer) ml/min BUN/Creatinine Ratio (10-20) Glucose (70-99(Fasting)) mg/dl Calcium (8.6-10.3) mg/dl Magnesium (1.7-2.4) mg/dl Total Bilirubin (0.2-1.0) mg/dl AST (13-39) U/L ALT (7-52) U/L Alkaline Phosphatase (34-104) U/L Total Protein (6.0-8.3) gm/dl Albumin (3.4-5.0) gm/dl Globulin (2.5-4.0) gm/dl Albumin/Globulin Ratio (0.9-2) Vitamin B12 (180-914) pg/ml Folate (>5.38) ng/ml Lyme Disease IgG Ab (Negative) Lyme Disease IgM Ab (Negative) Diagnostic Findings Hip/Pelvis X-Ray 06/10/23 11:45 XR hip LT 2V w pelvis CLINICAL HISTORY: L hip pain, s/p falls COMPARISON STUDY: Pelvis 06/07/2023. FINDINGS: Suboptimal evaluation of the left hip due to the patient's body habitus. However, there is no definite fracture or dislocation within the pelvis or hips. The sacrum appears intact. No radiopaque foreign bodies. IMPRESSION: No definite fracture or dislocation within the pelvis or hips. ACT 112: Negative or not required by law. Electronically signed by: Jose Alberto Cat M.D. 06/10/2023 3:[address] 06/10/23 16:23 CT hip LT wo con, CT femur LT wo con HISTORY: 57 years-old Female L leg/hip pain s/p fall, eval occult fracture acute pain of the left hip and thigh status post fall COMPARISON: Pelvis and hip radiographs 06/10/2023 TECHNIQUE: Axial CT images of the left hip and femur were obtained without the use of IV contrast. A dose lowering technique was used consistent with the principals of ALARA. FINDINGS: HIP: The imaged intrapelvic structures are unremarkable. Urinary bladder wall thickening with partial distention. Unremarkable soft tissues without joint effusion. Moderate Dot arthritis of the left hip. No acute fracture, dislocation, suspicious bone lesion or avascular necrosis. FEMUR: Mild to moderate tricompartmental osteoarthritis of the knee. No acute fracture or dislocation. Normal soft tissues. Small to moderate joint effusion of the knee. Chondrocalcinosis with possible subcentimeter intra-articular loose bodies. IMPRESSION: 1. No acute fracture or dislocation. 2. Jwxpb-[id number] joint effusion of the knee. 3. Osteoarthritis of the left knee and hip. ACT 112: Negative or not required by law. The above report was generated using voice recognition software. It may contain grammatical, syntax or spelling errors. Electronically signed by: Jann Aviles M.D. 06/10/2023 6:[address] 06/10/23 16:23 CT hip LT wo con, CT femur LT wo con HISTORY: 57 years-old Female L leg/hip pain s/p fall, eval occult fracture acute pain of the left hip and thigh status post fall COMPARISON: Pelvis and hip radiographs 06/10/2023 TECHNIQUE: Axial CT images of the left hip and femur were obtained without the use of IV contrast. A dose lowering technique was used consistent with the principals of ALLAN. FINDINGS: HIP: The imaged intrapelvic structures are unremarkable. Urinary bladder wall thickening with partial distention. Unremarkable soft tissues without joint effusion. Moderate Dot arthritis of the left hip. No acute fracture, dislocation, suspicious bone lesion or avascular necrosis. FEMUR: Mild to moderate tricompartmental osteoarthritis of the knee. No acute fracture or dislocation. Normal soft tissues. Small to moderate joint effusion of the knee. Chondrocalcinosis with possible subcentimeter intra-articular loose bodies. IMPRESSION: 1. No acute fracture or dislocation. 2. Hbtae-[id number] joint effusion of the knee. 3. Osteoarthritis of the left knee and hip. ACT 112: Negative or not required by law. The above report was generated using voice recognition software. It may contain grammatical, syntax or spelling errors. Electronically signed by: Jann Aviles M.D. 06/10/2023 6:55 PM KUB X-Ray 06/11/23 07:00 KUB CLINICAL HISTORY: Follow-up ileus. FINDINGS: 3 AP, portable, supine abdominal radiographs are compared to study dated 06/10/2023 and correlated with lumbar spine radiographs dated 06/08/2023. There is a nonobstructed abdominal bowel gas pattern. Distention of bowel loops suggestion has resolved. There is rectus sigmoid fecal retention and mild constipation. No evidence of intraperitoneal free air is seen on these supine images. Right gluteal soft tissue calcifications are similar to previous. The skeletal structures are osteopenic and appear intact. There is moderate lumbos acral spondylosis. IMPRESSION: Nonobstructed abdominal bowel gas pattern. Distended bowel loops seen on recent prior examinations have resolved. Electronically signed by: Julius Victor M.D. 06/11/2023 10:02 AM PG Care Time/CCT Total # of Minutes Spent Total Time Spent with Patient: Total time spent is greater than 50% in coordination of care (as documented) at patient's floor/unit and/or counseling patient: Coding Level of Care Code 42894 SUB INP/OBS CARE 3/50MIN Diagnoses Drug rash L27.0 Weakness R53.1 Recurrent UTI N39.0 Down syndrome Q90.9 Alzheimer disease G30.9; F02.80 LILIBETH (obstructive sleep apnea) G47.33 Near syncope R55 Hypothyroidism E03.9 Psoriasis L40.9
[2023-06-11] MEDS: allopurinoL 100 MG TAB PO SCH (09:21)
[2023-06-11] MEDS: ASPIRIN 81 MG ECTAB PO SCH (09:21)
[2023-06-11] MEDS: CHOLECALCIFEROL 5,000 UNITS 125 MCG TAB PO SCH (09:21)
[2023-06-11] MEDS: ATORVASTATIN 20 MG TAB PO SCH (09:21)
[2023-06-11] MEDS: ASCORBIC ACID 500 MG TAB PO SCH (09:21)
[2023-06-11] MEDS: DONEPEZIL HCL 5 MG TAB PO SCH (09:22)
[2023-06-11] MEDS: BETAMETHASONE DIPROPIONATE TOP SCH (09:22)
[2023-06-11] MEDS: CYANOCOBALAMIN (B-12) 500 MCG TABLET PO SCH (09:22)
[2023-06-11] MEDS: DOCUSATE SODIUM/SENNA 50/8.6MG TAB PO SCH (09:22)
[2023-06-11] MEDS: CALCIPOTRIENE TOP SCH (09:22)
[2023-06-11] MEDS: OTEZLA 30 MG PO SCH ×2 (09:22→20:33)
[2023-06-11] MEDS: predniSONE 20 MG TAB PO SCH (09:23)
[2023-06-11] MEDS: POLYETHYLENE (MIRALAX) 17 GM PACK PO SCH (09:23)
[2023-06-11 09:50] LABS: Lyme Ab IgG w/WB Rflx Negative (Negative); Lyme Ab IgM w/WB Rflx Negative (Negative)
--- NOTE | 2023-06-11 10:04 | XRay Report ---
KUB CLINICAL HISTORY: Follow-up ileus. FINDINGS: 3 AP, portable, supine abdominal radiographs are compared to study dated 06/10/2023 and minal elated with lumbar spine radiographs dated 06/08/2023. There is a nonobstructed abdominal bowel gas pa ttern. Distention of bowel loops suggestion has resolved. There is rectus sigmoid fecal retention and mild constipation. No evidence of intraperitoneal free air is seen on these supine images. Right glu teal soft tissue calcifications are similar to previous. The skeletal structures are osteopenic and a ppear intact. There is moderate lumbosacral spondylosis. IMPRESSION: Nonobstructed abdominal bowel gas pattern. Distended bowel loops seen on recent prior exa minations have resolved. Electronically signed by: Julius Victor M.D. 06/11/2023 10:02 AM
[2023-06-11] MEDS: FAMOTIDINE 20 MG in SYRINGE 3 ML IV SCH (11:23)
--- NOTE | 2023-06-11 15:22 | Communication Note ---
Date of Service: June 11, 2023 BMI 43.5 kg/m*m, morbid obesity Weight loss encouraged.
[2023-06-11] MEDS: risperiDONE 0.5 MG TABLET PO SCH (20:33)
[2023-06-11] MEDS: ENOXAPARIN INJ 40 MG/0.4 ML SYR SQ SCH (20:34)
[2023-06-12] MEDS: LEVOTHYROXINE SODIUM 137 MCG TABLET PO SCH (06:04)
--- NOTE | 2023-06-12 07:36 | Hospitalist Progress Note ---
Date of Service June 12, 2023 Assessment & Plan (1) Sinus pause: Plan: Admitted for drug rash from ampicillin use for recent enterococcus UTI, completed course Cipro while inpatient. Of note, had "syncopal" type episode lasting a couple of seconds 06/09 (suspect was having pause as well then, but not on monitor. EKG unremarkable) No prior seizures noted but family reported a similar type episode in [facility]. Consulted Neuro/MRI negative. Did not feel seizure related, EEG cancelled Lyme testing negative ECHO obtained for completeness which showed normal EF, cLVH, mild-mod RV dilation w/ normal RVSP. Had some drops to the 30s on monitor while sleeping/not using CPAP days prior but had been compliant and stable since that time up until this morning Today around 12:41 with 5.3 second pause, 6.8 second pause 12:43 with patient up/alert/eating in chair without syncopal episode. No LOC or other issue per family at bedside. BPs stable. Denied CP/SOB on examination and actually looked the best she had all week. Discussed case w/ Dr Hutchinson as patient not on any beta-monalisa/AV tracey blocking agents, no eye drops. Likely requirement for insertion of pacemaker and suspect frequent falls at home could have been from pauses at home, also suspect event the other day could have been from such but was not on monitor at that time and reports of more frequent falls at home recently. Official cardiology consult placed Pacemaker pads at bedside Encouraged to use purewick/bedpan in meantime to prevent falls Will make NPO at midnight Hopefully able to have pacemaker placed tomorrow -- risks discussed by Dr Hutchinson, witnessed, at bedside with patient and family this afternoon Of note, given dementia, benefit of use w/ sling during day following to restrict raising arm above 90 degrees (take off at night, prevent any frozen shoulder issues/etc) (2) Drug rash: Plan: Rash, suspect drug rash 2/2 ampicillin Patient diagnosed with Enterococcus UTI in the preceding week, was able to tolerate 3 of 7 days of ampicillin but developed a rash on her chest and rapid progressive fatigue immediately after starting antibiotic. Procal .05 No leukocytosis/concurrent UTi or other viral symptoms Completed course Ciprofloxacin while inpatient 06/10 to cover for UTI Prednisone 20mg daily (day 3) -- rash almost resolved Vistaril available for itching Of note, fever 39.3C on 06/09, blood cultures remain negative. Biofire negative/CXR w/o acute process. KUB did show possible ileus, moving bowels multiple times, repeat KUB w/ resolution. blood cultures remain no growth to date (3) Weakness: Plan: suspected 2nd to UTI/deconditioning, drug reaction CT head negative on admission. CTA head/neck w/o aneurysm. noted incidental aberrant L subclavian artery. Incontinent of urine reported at baseline, however per family worsening/ongoing issue w/ falls over past 3-5 months Lumbar spine imaging obtained for incontinence issues/recent falls 1. No acute fractures within the lumbar spine. 2. Mild wedging within the lower thoracic spine vertebral bodies is likely chronic. 3. Bilateral L5 spondylolysis with associated grade 2 anterolisthesis. abx treatment as above, now complete Imaging w/o fractures MRI brain completed per discussion w/ family -- no acute CVA . Suspect falls/weakness from pauses as above, NPO at midnight for possible pacemaker PT/OT consulted -- needing rehab. [facility] sometime next week recommended but will need pacer now as above (4) Recurrent UTI: Plan: repeat urine cx negative. abx as above completed course 06/10 (5) Down syndrome: Plan: Downs/Mood Disorder/Alzheimers - Risperidone 25mg qHS (6) Alzheimer disease: (7) LILIBETH (obstructive sleep apnea): Plan: LILIBETH CPAP HS -- family brought in for use (8) Near syncope: Plan: as above, now w/ pauses on monitor as likely source of near syncope/syncope at home and leading to her falls along w/ UTI previously (9) Hypothyroidism: Plan: Hypothyroidism Continue Synthroid 137mcg daily TSH wnl on repeat (10) Psoriasis: Plan: Psoriasis - Apremilast BID continued Hyperlipidemia Aspirin, atorvastatin continued Plan continued inpatient stay anesthesia consulted given facial features/possible assistance w/ procedure (family notes tolerated anesthesia for tubes to ears last year without issue) NPO at midnight for possible pacemaker insertion tomorrow Moved to PCU Admission and Anticipated Discharge Date Admission Date: June 09, 2023 Supervising Physician Co-Signing Physician Notes the patient was not seen by me. The chart was reviewed. The case was discussed with JESUSITA Steen. Agree with assessment and plan. Subjective Going to review patient telemetry which did not have any further drops to the 30s w/ sleeping in past 24 hours, had been using her CPAP. Family had been at bedside whole time, patient doing much better today, trying to ambulate to the bathroom, more awake/alert, conversive with family. Remembered me from day before. On telemetry however, had two pauses at 12:41 for 5.3 second pause and again at 12:43 for 6.8 seconds. No chest pain or shortness of breath/dizziness reported. Discussed w/ family prior episode last week and falls at home. Prior EKG obtained w/ her episode was normal, ECHO w/o significant valvular disease and likely this is what happened next week. They state their mother had pacemaker placed in her 60s for they believe slow heart rate. Discussed making NPO/cardiology consulted -- visited again w/ Dr Hutchinson after discussion regarding case and pause and recommendations for pacemaker placement given pauses while awake/alert Questions/concerns addressed. Moving to PCU, external pacer pads to be in place. Physical Exam Physical Exam: General: WD/WN female sitting up in chair, appears MUCH improved, more alert/awake/conversive Head atraumatic, facies c/w Downs, trachea midline, thick neck rash to face/chest almost completely resolved Resp: CTA, no w/c/r, on room air CV: regular rate/rhythm (exception pauses on monitor as outlined), no significa nt murmur, pulses palpable, trace pedal edema GI:+BS, soft/NT : no rivas MSK/Neuro/Psych: alert to person/family, dementia at baseline improvement in strength testing b/l, follows commands as able (frequent direction due to dementia/alzheimers at baseline), pleasant and cooperative, laughing Results & Data Results & Data Vital Signs (Past 12 Hours) Vital Signs Temp Pulse Pulse Resp BP Pulse Ox O2 Del Method 06/12/23 07:14 37.0 C 60 16 124/67 96 Room Air 06/12/23 04:18 36.3 C L 69 20 114/68 94 Room Air 06/12/23 00:22 36.6 C 63 18 122/56 L 94 Room Air 06/11/23 22:00 78 06/11/23 20:01 36.4 C L 71 20 133/78 95 Room Air PG Care Time/CCT Total # of Minutes Spent Total Time Spent with Patient: Total time spent is greater than 50% in coordination of care (as documented) at patient's floor/unit and/or counseling patient: Coding Level of Care Code 35732 SUB INP/OBS CARE 3/50MIN Diagnoses Sinus pause I45.5 Drug rash L27.0 Weakness R53.1 Recurrent UTI N39.0 Down syndrome Q90.9 Alzheimer disease G30.9; F02.80 LILIBETH (obstructive sleep apnea) G47.33 Near syncope R55 Hypothyroidism E03.9 Psoriasis L40.9
[2023-06-12] MEDS: OTEZLA 30 MG PO SCH ×2 (08:01→20:19)
[2023-06-12] MEDS: DONEPEZIL HCL 5 MG TAB PO SCH (08:01)
[2023-06-12] MEDS: ASPIRIN 81 MG ECTAB PO SCH (08:01)
[2023-06-12] MEDS: ATORVASTATIN 20 MG TAB PO SCH (08:01)
[2023-06-12] MEDS: allopurinoL 100 MG TAB PO SCH (08:01)
[2023-06-12] MEDS: CHOLECALCIFEROL 5,000 UNITS 125 MCG TAB PO SCH (08:01)
[2023-06-12] MEDS: CYANOCOBALAMIN (B-12) 500 MCG TABLET PO SCH (08:01)
[2023-06-12] MEDS: ASCORBIC ACID 500 MG TAB PO SCH (08:01)
[2023-06-12] MEDS: BETAMETHASONE DIPROPIONATE TOP SCH (08:02)
[2023-06-12] MEDS: CALCIPOTRIENE TOP SCH (08:02)
[2023-06-12] MEDS: predniSONE 20 MG TAB PO SCH (08:02)
[2023-06-12] MEDS: DOCUSATE SODIUM/SENNA 50/8.6MG TAB PO SCH (08:08)
[2023-06-12] MEDS: POLYETHYLENE (MIRALAX) 17 GM PACK PO SCH (08:08)
[2023-06-12] MEDS: FAMOTIDINE 20 MG in SYRINGE 3 ML IV SCH (08:26)
--- NOTE | 2023-06-12 13:49 | Cardiology Consultation ---
Date of Consultation June 12, 2023 History of Present Illness Reason for Consultation: Sinus arrest with no escape rhythm Attending Physician: Severino Thapa MD History of Present Illness Lacie was admitted to the hospital with weakness and inability to walk and found to have urinary tract infection. This was treated she ultimately had a skin reaction to the antibiotics. Her antibiotics were changed she completed her treatment protocol her blood cultures and her UA are now normal. Last week on the she had an episode upstairs where she sort of rolled her eyes back in her head this was witnessed by her family. She was awake during this time. As fast as her eyes rolled into her head and she sort of slumped over she woke back up. There is also multiple stories from the family that she has had falls at home that been unexplained and unusual for her. Today she was awake spending time with her family and she ultimately had a 6.8-second pause and a 5.3-second pause on the monitor. With these episodes she did not lose consciousness. Examining her she is awake she has significant memory issues related to dementia. She is alert though and her family seems to be able to converse with her without any issues. At home the family notes she usually walks on her own and denied any shortness of breath she denied any lightheadedness outside of these episodes where she felt uncomfortable walking with the fear that she was falling. The rest of review of systems is negative She did have an echocardiogram here in the hospital which was limited but normal her baseline EKG also is normal. Her Lyme titers were negative. Allergies Allergy/AdvReac Type Severity Reaction Status Date / Time ampicillin Allergy Intermediate Rash, Verified 06/10/23 07:38 fatigue colchicine Allergy Intermediate Swelling Unverified 06/07/23 20:45 of the Eye Home Medications Medication Instructions Recorded Confirmed Type allopurinol 100 mg tablet 100 mg PO DAILY 05/31/23 06/07/23 History apremilast 30 mg tablet (Otezla) 30 mg PO BID 05/31/23 06/07/23 History ascorbic acid (vitamin C) 500 mg 500 mg PO DAILY 05/31/23 06/07/23 History capsule atorvastatin 20 mg tablet 20 mg PO DAILY 05/31/23 06/07/23 History cholecalciferol (vitamin D3) 125 125 mcg PO DAILY 05/31/23 06/07/23 History mcg (5,000 unit) capsule donepezil 5 mg tablet 5 mg PO DAILY 05/31/23 06/07/23 History glucosamine HCl 1,500 mg tablet 1,500 mg PO DAILY 05/31/23 06/07/23 History levothyroxine 137 mcg capsule 137 mcg PO DAILY 05/31/23 06/07/23 History mecobalamin (vitamin B12) 1,000 1,000 mcg PO DAILY 05/31/23 06/07/23 History mcg chewable tablet ampicillin 500 mg capsule 500 mg PO TID #21 caps 06/03/23 06/07/23 Rx aspirin 81 mg tablet,delayed 81 mg PO DAILY 06/07/23 06/07/23 History release calcipotriene-betamethasone 0.005 1 applic topical DAILY 06/07/23 06/07/23 History %-0.064 % topical ointment clindamycin phosphate 1 % topical 1 applic topical DAILY 06/07/23 06/07/23 History swab cranberry juice 1 ea PO DAILY 06/07/23 06/07/23 History metronidazole 0.75 % topical cream 1 applic topical DAILY 06/07/23 06/07/23 History risperidone 0.25 mg tablet 25 mg PO HS 06/07/23 06/07/23 History Patient History Medical History Alzheimer disease Down syndrome Incontinence No pertinent family history Recurrent UTI Surgical History No pertinent past surgical history Social History Smoking Status: Never smoker Hx Alcohol Use: No Hx Substance Use: No Preferred Language: Ghanaian Communication Ability: Impaired 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 HEENT: 2+ carotid upstrokes Lungs: Clear to auscultation bilaterally Heart: Regular rate and rhythm no appreciable murmurs Abdomen: Soft nontender nondistended positive bowel sounds obese Extremities: No clubbing cyanosis or edema IMPRESSIONS 1) Sinus pause: Plan: As I discussed with the family and the primary service her pauses are occurring without an escape rhythm while she is awake. Although she carries a history of obstructive sleep apnea the episode upstairs last week on the third floor and the 2 pauses today occurred with her clearly being awake. Additionally there is a concern given the falling that the has been described at home that she could be having pauses there as well. She is not on any AV tracey blockers nor any medication that should be causing her to have sinus arrest. Her echocardiogram is normal done earlier this admission. Her Lyme titers are negative. Her urine culture now is clear and her blood cultures have been negative. We discussed that she should consider pacemaker implantation and her family is agreeable to this. We discussed the risk and benefits of pacemaker implantation including but not limited to infection or bleeding at the incision site,, damage to her subclavian artery or vein, risk of pericardial effusion, risk of poking a hole in her heart, , arrhythmia, and aspiration. Given her obstructive sleep apnea the way that her jaw is placed in her very thick neck we will ask anesthesia to provide a preop evaluation for her safety. This will be communicated with the EP service and hopefully her device can be placed tomorrow. Long-term monitoring of the device as well as restriction of her left arm above 90 degrees for 30 days was discussed with the family. All this was discussed with the hospitalist service. (2) Drug rash: Plan: Rash, suspect drug rash 2/2 ampicillin Patient diagnosed with Enterococcus UTI in the preceding week, was able to tolerate 3 of 7 days of ampicillin but developed a rash on her chest and rapid progressive fatigue immediately after starting antibiotic. Procal .05 No leukocytosis/concurrent UTi or other viral symptoms (3) Weakness: Plan: suspected 2nd to UTI/deconditioning, drug reaction CT head negative on admission. CTA head/neck w/o aneurysm. noted incidental aberrant L subclavian artery.
[2023-06-12 15:35] LABS: BUN Creatinine Ratio 18.3 (10-20); Calcium 8.8 mg/dl (8.6-10.3); Creatinine Clr Calc Pharmacy 57.3 ml/min; Est GFR (African American) 66.2 ml/min; Est GFR (Non-African American) 57.1 ml/min; Magnesium 1.9 mg/dl (1.7-2.4); Potassium 4.4 mmol/L (3.5-5.1)
[2023-06-12] MEDS: risperiDONE 0.5 MG TABLET PO SCH (20:19)
[2023-06-12] MEDS: ENOXAPARIN INJ 40 MG/0.4 ML SYR SQ SCH (20:19)
[2023-06-13] MEDS: LEVOTHYROXINE SODIUM 137 MCG TABLET PO SCH (06:02)
--- NOTE | 2023-06-13 07:16 | Hospitalist Progress Note ---
Date of Service June 13, 2023 Assessment & Plan (1) Sinus node dysfunction: (2) Recurrent UTI: (3) Drug rash: (4) Down syndrome: (5) Alzheimer disease: (6) Weakness: (7) LILIBETH (obstructive sleep apnea): (8) Psoriasis: (9) Hypothyroidism: Plan #Sinus Node Dysfunction - syncopal type episode noticed on 06/09, no h/o seizures - sinus pauses noted on 06/12 - 5.3 seconds, 6.8 seconds -pt not on AV tracey blockers -Cardiology consult - recommend pacemaker placement -may explain recurrent falls/weakness #Drug Rash - Pt developed rash on chest about 3 days into course of ampicillin for UTI -concomitant weakness/fatigue -Ampicillin discontinued -Completed course of Ciprofloxacin 06/10 -On Prednisone 20mg daily -prn hydroxyzine for itching #UTI -as above -repeat urine cx negative #Weakness - Imaging work up negative for acute process - negative CT head, CTA head/neck, MRI brain -likely secondary to sinus pauses #Down Syndrome - Risperidone 25mg qHS #Alzheimer's Disease #LILIBETH: -CPAP at night #Hypothyroidism -continue synthroid #Psoriasis -Apremilast BID Admission and Anticipated Discharge Date Admission Date: June 09, 2023 Supervising Physician Co-Signing Physician Notes I personally examined the patient and verified all heart points of history and exam, discussed case, and agree with decision making with Dr Kline Not really able to obtain meaningful HPI review of systems from patient. Family expresses good understanding, asked good questions, answered to the best my ability and to their satisfaction. Vitals noted, in general she is awake and alert pleasant no distress. Breathing unlabored no accessory muscle use good effort. Skin shows no rashes no pallor or icterus. Rhythm strips noted. Syncope/fallssymptomatic bradycardiafor pacer. Otherwise as above. Subjective Pt is a 57 year old female with PMH of Down syndrome, Alzheimer's, and recurrent falls presenting for evaluation of drug rash secondary to ampicillin treatment for UTI as well as weakness. Patient is a poor historian but family is present in the room and are able to provide information. During hospitalization, patient was found to have recurrent sinus pauses - cardiology evaluated patient and she is scheduled for pacemaker implantation on 06/14. On evaluation today, patient presents laying in bed in no acute distress. Patient is not able to meaningfully answer questions but vitals are stable and family is reassured that rash is improving significantly since steroids were started. Review of Systems Review of Systems: All systems reviewed & are unremarkable except as noted in HPI & below Physical Exam Constitutional: WD/WN, vitals as above no acute distress Respiratory: normal respiratory effort, lungs clear to auscultation Cardiovascular: RRR, no murmur, no edema Skin: erythematous, maculopapular rash visible on chest and neck Results & Data Results & Data Vital Signs (Past 12 Hours) Vital Signs Temp Pulse Resp BP Pulse Ox O2 Del Method 06/13/23 03:23 36.8 C 48 L 17 105/52 L 97 Room Air 06/12/23 23:31 36.8 C 54 L 17 114/68 97 Room Air 06/12/23 19:33 36.5 C 56 L 20 123/71 96 Room Air
--- NOTE | 2023-06-13 08:35 | Cardiology Progress Note ---
Date of Service June 13, 2023 Assessment & Plan (1) Sinus pause: Plan IMPRESSIONS 1. Sinus pause, syncope 2. Echo mild concentric LVH, normal LVF without WMA, mild to moderate dilation right ventricle. 3. LILIBETH on cpap 4. UTI 5. Trisomy 21 with dementia 6. CTA head/neck with aberrant left subclavian artery, patent carotids Ms. Carballo is to have a pacemaker placed today for sinus pauses. The plan was discussed yesterday with her family and Dr. Hutchinson. She is having pauses while awake and there is concern that it was contributing to some falls she was having. Lyme titer was negative. She has not been on any AV node blockers. Anesthesia is consulted for her pacemaker placement given her thick neck and history of sleep apnea. She has had some weakness as well likely due to deconditioning and UTI. Her blood cultures are negative. Admission and Anticipated Discharge Date Admission Date: June 09, 2023 Subjective Ms. Carballo is not able to give much history but she appears comfortable. She did not have pauses on telemetry overnight but had lows in the 30s, SR/SB. She has been NPO since midnight Review of Systems Review of Systems: All systems reviewed & are unremarkable except as noted in HPI & below Physical Exam Constitutional: WD/WN, vitals as above Respiratory: normal respiratory effort, lungs clear to auscultation Cardiovascular: RRR, no murmur, no edema Skin: warm, dry Neurologic: moves all extremities and awake Psychiatric: Orientation: alert and oriented to person Results & Data Vital Signs (Past 12 Hours) Vital Signs Temp Pulse Resp BP Pulse Ox O2 Del Method 06/13/23 07:38 37.0 C 52 L 16 105/62 98 Room Air 06/13/23 03:23 36.8 C 48 L 17 105/52 L 97 Room Air 06/12/23 23:31 36.8 C 54 L 17 114/68 97 Room Air
[2023-06-13] MEDS: FAMOTIDINE 20 MG in SYRINGE 3 ML IV SCH (08:41)
[2023-06-13] MEDS: LACTATED RINGER'S 1,000 ML IV SCH ×2 (08:42→16:25)
[2023-06-13 08:58] LABS: Hemoglobin 12.4 g/dl (12.0-16.0); Mean Corpuscular Hemoglobin 32.3 pg (25.0-34.0); Mean Corpuscular Hgb Conc 32.6 g/dL (32.0-36.0); Mean Platelet Volume 9.9 fL (9.4-12.4); Platelet Count 293 K/uL (130-400); RDW Coefficient of Variation 14.8 % (11.5-14.5); RDW Standard Deviation 53.8 fL (36.4-46.3); Red Blood Count 3.84 M/uL (4.20-5.40); White Blood Count 4.25 K/ul (4.8-10.8)
[2023-06-13 09:16] LABS: Calcium 9.1 mg/dl (8.6-10.3); Creatinine Clr Calc Pharmacy 82.2 ml/min; Est GFR (African American) 102.3 ml/min; Est GFR (Non-African American) 88.3 ml/min; Potassium 4.3 mmol/L (3.5-5.1)
--- NOTE | 2023-06-13 14:06 | Cardiology Consultation ---
Date of Consultation June 13, 2023 Assessment & Plan (1) Near syncope: (2) Sinus node dysfunction: Plan 1. Near syncope: She has had clinical episodes of near syncope which are compatible with a transient arrhythmia. We have identified significant sinus node discomfort with sinus pauses on monitoring although they have not been symptomatic. It is very likely her symptomatic episodes are due to sinus node dysfunction but we have not proven it. The only way to prove it would be to have her on a monitor when she had symptoms and identify the rhythm. I do not think this is necessary however. 2. Severe sinus node dysfunction: She has sinus node dysfunction with periods o f sinus bradycardia as well as long pauses. Although some of these could be due to sleep apnea some are while she is awake and her symptoms (observed events) have been well awake as well. The clinical episodes have been intermittent and she is on no medications to cause them. I would recommend pacemaker implantation. I discussed the indications, procedure, risks and alternatives of pacemaker implantation with her sisters who were present in the room, they understand and do a power of health care attorney. I therefore obtained consent for the procedure. I would anticipate being able to do this pacemaker implantation June 14, 2023 around 1:00 in the afternoon. I believe we can safely do it with local anesthetic and moderate sedation. Anesthesia is consulted, if they feel that this cannot be done safely with the standard approach we can reevaluate timing. History of Present Illness Reason for Consultation: Pacemaker implantation Attending Physician: Les Torres DO History of Present Illness This is a 57-year-old woman with Down's syndrome who has been having symptoms compatible with presyncope. She is not a good historian however she has been observed to have episodes where she appears to become minimally responsive or unresponsive, these are brief and she seems to wake up quickly. She also has falls which are unexplained. On June 12, 2023 she was observed to have multiple long pauses, at least one in excess of 7 seconds, at a time when she was awake and evidently asymptomatic. She cannot provide a history. An electrocardiogram done June 07, 2023 shows sinus rhythm at 72 bpm and is a normal electrocardiogram. An echocardiogram done June 09, 2023 shows normal left ventricular size and function with mild concentric left ventricular hypertrophy and no significant valvular disease. Allergies Allergy/AdvReac Type Severity Reaction Status Date / Time ampicillin Allergy Intermediate Rash, Verified 06/10/23 07:38 fatigue colchicine Allergy Intermediate Swelling Unverified 06/07/23 20:45 of the Eye Home Medications Medication Instructions Recorded Confirmed Type allopurinol 100 mg tablet 100 mg PO DAILY 05/31/23 06/07/23 History apremilast 30 mg tablet (Otezla) 30 mg PO BID 05/31/23 06/07/23 History ascorbic acid (vitamin C) 500 mg 500 mg PO DAILY 05/31/23 06/07/23 History capsule atorvastatin 20 mg tablet 20 mg PO DAILY 05/31/23 06/07/23 History cholecalciferol (vitamin D3) 125 125 mcg PO DAILY 05/31/23 06/07/23 History mcg (5,000 unit) capsule donepezil 5 mg tablet 5 mg PO DAILY 05/31/23 06/07/23 History glucosamine HCl 1,500 mg tablet 1,500 mg PO DAILY 05/31/23 06/07/23 History levothyroxine 137 mcg capsule 137 mcg PO DAILY 05/31/23 06/07/23 History mecobalamin (vitamin B12) 1,000 1,000 mcg PO DAILY 05/31/23 06/07/23 History mcg chewable tablet ampicillin 500 mg capsule 500 mg PO TID #21 caps 06/03/23 06/07/23 Rx aspirin 81 mg tablet,delayed 81 mg PO DAILY 06/07/23 06/07/23 History release calcipotriene-betamethasone 0.005 1 applic topical DAILY 06/07/23 06/07/23 History %-0.064 % topical ointment clindamycin phosphate 1 % topical 1 applic topical DAILY 06/07/23 06/07/23 History swab cranberry juice 1 ea PO DAILY 06/07/23 06/07/23 History metronidazole 0.75 % topical cream 1 applic topical DAILY 06/07/23 06/07/23 History risperidone 0.25 mg tablet 25 mg PO HS 06/07/23 06/07/23 History Patient History Medical History Alzheimer disease Down syndrome Incontinence No pertinent family history Recurrent UTI Surgical History No pertinent past surgical history Social History Smoking Status: Never smoker Hx Alcohol Use: No Hx Substance Use: No Preferred Language: Welsh Communication Ability: Impaired Black Topper Required: No Beliefs That Will Affect Care: None Current Living Situation: Family Feels Safe at Home: Yes Assistive Devices: Walker Physical Exam Physical Exam: Constitutional: Alert, cooperative and in no distress. HEENT: Changes consistent with Down's syndrome Neck: No jugular venous distention, carotid pulses are normal and equal bilaterally without bruits. Pulmonary: Clear to auscultation bilaterally. Cardiac: Regular rhythm with no murmur, gallop or rub. Abdomen: Soft, nontender with normal bowel sounds. Extremities: No edema. Neurologic: No focal findings. Gait was not tested. Skin: No rash, ecchymoses or petechiae. Results & Data Vital Signs (Past 12 Hours) Vital Signs Temp Pulse Pulse Resp BP Pulse Ox O2 Del Method 06/13/23 11:37 36.4 C L 52 L 14 144/72 H 95 Room Air 06/13/23 08:00 58 L 06/13/23 07:38 37.0 C 52 L 16 105/62 98 Room Air 06/13/23 03:23 36.8 C 48 L 17 105/52 L 97 Room Air Laboratory Results CBC 06/13/23 Range/Units 08:41 WBC 4.25 L (4.8-10.8) K/ul RBC 3.84 L (4.20-5.40) M/uL Hgb 12.4 (12.0-16.0) g/dl Hct 38.0 (37.0-47.0) % Plt Count 293 (130-400) K/uL Comprehensive Metabolic Panel 06/13/23 Range/Units 08:41 Sodium 139 (136-145) mmol/L Potassium 4.3 (3.5-5.1) mmol/L Chloride 105 (98-107) mmol/L Carbon Dioxide 26 (21-32) mmol/L BUN 19 (6-23) mg/dl Creatinine 0.76 D (0.6-1.2) mg/dl Glucose 92 (70-99(Fasting)) mg/dl Calcium 9.1 (8.6-10.3) mg/dl Intake and Output 07/31/23 07/31/23 07/31/23 06:59 14:59 22:59 Intake Total 300 / 1264.583 964.583 / 1264.583 Output Total 850 / 850 700 / 700 Balance -850 / -850 -400 / 564.583 964.583 / 564.583 Intake: IV 964.583 / 964.583 Lactated Ringer's 1,000 ml @ 964.583 / 964.583 125 mls/hr IV .Q8H JACKIE Rx#: [id number] Oral 300 / 300 Output: Urine Amount (Catheter) 850 / 850 700 / 700 External 850 / 850 700 / 700 Diagnostic Findings Telemetry: Multiple episodes of sinus bradycardia as well as periods of sinus arrest lasting in excess of 7 seconds while awake. No tachycardia. PG Care Time/CCT Total # of Minutes Spent Total Time Spent with Patient: Total time spent is greater than 50% in coordination of care (as documented) at patient's floor/unit and/or counseling patient: Coding Level of Care Code 75594 OFFICE CONSULT LVL 40M Diagnoses Near syncope R55 Sinus node dysfunction I49.5
[2023-06-13] MEDS: allopurinoL 100 MG TAB PO SCH (14:38)
[2023-06-13] MEDS: DONEPEZIL HCL 5 MG TAB PO SCH (14:38)
[2023-06-13] MEDS: predniSONE 20 MG TAB PO SCH (14:38)
[2023-06-13] MEDS: ASPIRIN 81 MG ECTAB PO SCH (14:38)
[2023-06-13] MEDS: ATORVASTATIN 20 MG TAB PO SCH (14:38)
[2023-06-13] MEDS: ASCORBIC ACID 500 MG TAB PO SCH (14:38)
[2023-06-13] MEDS: OTEZLA 30 MG PO SCH ×2 (14:39→21:25)
[2023-06-13] MEDS: BETAMETHASONE DIPROPIONATE TOP SCH (14:39)
[2023-06-13] MEDS: CALCIPOTRIENE TOP SCH (14:39)
[2023-06-13] MEDS: CYANOCOBALAMIN (B-12) 500 MCG TABLET PO SCH (14:39)
[2023-06-13] MEDS: DOCUSATE SODIUM/SENNA 50/8.6MG TAB PO SCH (14:41)
[2023-06-13] MEDS: CHOLECALCIFEROL 5,000 UNITS 125 MCG TAB PO SCH (16:26)
--- NOTE | 2023-06-13 19:14 | Billing Data ---
Date of Service June 13, 2023 Coding Level of Care Code 94574 SUB INP/OBS CARE
[2023-06-13] MEDS: ENOXAPARIN INJ 40 MG/0.4 ML SYR SQ SCH (21:24)
[2023-06-13] MEDS: risperiDONE 0.5 MG TABLET PO SCH (21:26)
[2023-06-13] MEDS: hydrOXYzine HCl 10 MG TAB PO PRN (21:27)
[2023-06-14] MEDS: LACTATED RINGER'S 1,000 ML IV SCH ×3 (03:17→17:17)
[2023-06-14] MEDS: LEVOTHYROXINE SODIUM 137 MCG TABLET PO SCH (06:51)
[2023-06-14] MEDS ORDERED: WATER, STERILE FOR INJ 10 ML VIAL ONE (07:03)
[2023-06-14] MEDS ORDERED: VANCOMYCIN HCL 1000MG/20ML VIAL ONE (07:03)
[2023-06-14] MEDS ORDERED: BACITRACIN OINT 0.9 GM PKT ONE (07:03)
[2023-06-14] MEDS ORDERED: LIDOCAINE 1% LOCAL 20 ML VIAL ONE (07:03)
[2023-06-14] MEDS: FAMOTIDINE 20 MG in SYRINGE 3 ML IV SCH (08:59)
--- NOTE | 2023-06-14 11:05 | Hospitalist Progress Note ---
Date of Service June 14, 2023 Assessment & Plan (1) Sinus node dysfunction: (2) Recurrent UTI: (3) Drug rash: (4) Down syndrome: (5) Alzheimer disease: (6) Weakness: (7) LILIBETH (obstructive sleep apnea): (8) Psoriasis: (9) Hypothyroidism: Plan #Sinus Node Dysfunction - syncopal type episode noticed on 06/09, no h/o seizures - sinus pauses noted on 06/12 - 5.3 seconds, 6.8 seconds -pt not on AV tracey blockers -Cardiology consult - pacemaker placement scheduled for today 06/14 -may explain recurrent falls/weakness #Drug Rash - Pt developed rash on chest about 3 days into course of ampicillin for UTI -concomitant weakness/fatigue -Ampicillin discontinued -Completed course of Ciprofloxacin 06/10 - Rash improving, continue Prednisone 20mg daily -prn hydroxyzine for itching #UTI -as above -repeat urine cx negative #Weakness - Imaging work up negative for acute process - negative CT head, CTA head/neck, MRI brain -likely secondary to sinus pauses #Down Syndrome - Risperidone 25mg qHS #Alzheimer's Disease #LILIBETH: -CPAP at night #Hypothyroidism -continue synthroid #Psoriasis -Apremilast BID Admission and Anticipated Discharge Date Admission Date: June 09, 2023 Supervising Physician Co-Signing Physician Notes I personally examined the patient and verified all heart points of history and exam, discussed case, and agree with decision making with Dr Kline no meaningful HPI review of systems from patient. for pacer today. Vitals noted, in general she is awake and alert pleasant no distress. Breathing unlabored no accessory muscle use good effort. Skin shows no rashes no pallor or icterus. Rhythm strips noted. Syncope/fallssymptomatic bradycardiafor pacer today. Otherwise as above. Subjective Pt evaluated at bedside, family present in room. Given that patient is minimally communicative, information largely obtained from family. Family notes that rash continues to improve, they observe patient scratching at it occasionally but overall much better. Patient is scheduled for pacemaker placement later this afternoon. No concerns or complaints from patient or family. Review of Systems Review of Systems: All systems reviewed & are unremarkable except as noted in HPI & below Physical Exam Constitutional: WD/WN, vitals as above cooperative; no acute distress Respiratory: normal respiratory effort, lungs clear to auscultation Cardiovascular: RRR, no murmur, no edema Skin: erythematous maculopapular rash on chest and neck, improving Results & Data Results & Data Vital Signs (Past 12 Hours) Vital Signs Temp Pulse Pulse Resp BP Pulse Ox O2 Del Method 06/14/23 07:45 Room Air 06/14/23 07:45 45 L 06/14/23 08:01 36.6 C 89 20 112/72 95 Room Air 06/14/23 02:37 36.5 C 62 16 104/70 95 BiPAP Resident Activity Tracking Resident Involvement: Resident Care Provided Care Provided: Adult Hospital Medicine
--- NOTE | 2023-06-14 13:14 | Pre Anesthesia Assessment ---
Date of Service June 14, 2023 Pre Sedation Assessment Vital Signs Temp Pulse Pulse Resp BP Pulse Ox O2 Del Method 06/14/23 13:00 55 L 14 145/65 H 97 Room Air 06/14/23 11:34 36.9 C 54 L 18 119/75 99 Room Air 06/14/23 07:45 Room Air 06/14/23 07:45 45 L 06/14/23 08:01 36.6 C 89 20 112/72 95 Room Air 06/14/23 02:37 36.5 C 62 16 104/70 95 BiPAP 06/13/23 22:00 87 06/13/23 22:15 36.6 C 81 20 143/77 H 95 Room Air 06/13/23 20:50 Room Air 06/13/23 19:42 37.1 C 64 18 119/76 95 Room Air 06/13/23 16:00 36.9 C 68 18 101/56 L 97 Room Air 06/13/23 15:14 60 06/13/23 14:57 36.3 C L 60 18 100/66 98 Room Air Cardiovascular RRR, no murmur, no edema Respiratory normal respiratory effort, lungs clear to auscultation Pre-Sedation Airway Assessment Smoking Status: Never smoker Hx Sleep Apnea: No Short, Thick Neck: No Thyromental Distance: > or= 3.5 Finger Breadths Oral Cavity: + Dental Abnormalities Mallampati Class: III ASA: ASA3 NPO Status Date of Last Intake of Fluids: 06/13/23 Date of Last Intake of Solid Food: 06/13/23 Procedure Planning Contraindications for Sedation: none Current Medications Reviewed: Yes Notes The planned sedation has been discussed with the patient's family. Informed Consent was obtained. I have identified the patient, determined the appropriateness of sedation and have assessed the patient immediately prior to the procedure. All medicine(s) and interventions are by my order.
--- NOTE | 2023-06-14 13:15 | History & Physical Bridge Note ---
Date of Service June 14, 2023 History & Physical Bridge Note I have examined the patient, reviewed the History & Physical and in the interval since the performance of the History & Physical I have noted the following changes of clinical significance: no changes noted. I reviewed the procedure with the patient. Patient seems to have some understanding and agrees to the procedure.
[2023-06-14] MEDS ORDERED: MIDAZOLAM HCL 5 MG/ML 1 ML VIAL ONE (14:47)
[2023-06-14] MEDS ORDERED: fentaNYL citrate PF 100 MCG/2 ML VIAL ONE (14:48)
[2023-06-14] MEDS ORDERED: ceFAZolin 330 MG/ML 1 GM VIAL ONE (14:48)
[2023-06-14] MEDS ORDERED: ACETAMINOPHEN W/CODEINE #3 1 TAB PO PRN (15:17)
--- NOTE | 2023-06-14 15:29 | Post Anesthesia Assessment ---
Date of Service June 14, 2023 Post Sedation Assessment Vital Signs Temp Pulse Pulse Pulse Resp BP Pulse Ox 06/14/23 15:00 60 16 97/60 L 97 06/14/23 14:45 60 16 109/63 97 06/14/23 13:00 55 L 14 145/65 H 97 06/14/23 11:34 36.9 C 54 L 18 119/75 99 06/14/23 07:45 06/14/23 07:45 45 L 06/14/23 08:01 36.6 C 89 20 112/72 95 06/14/23 02:37 36.5 C 62 16 104/70 95 06/13/23 22:00 87 06/13/23 22:15 36.6 C 81 20 143/77 H 95 06/13/23 20:50 06/13/23 19:42 37.1 C 64 18 119/76 95 06/13/23 16:00 36.9 C 68 18 101/56 L 97 O2 Del Method 06/14/23 15:00 Room Air 06/14/23 14:45 Room Air 06/14/23 13:00 Room Air 06/14/23 11:34 Room Air 06/14/23 07:45 Room Air 06/14/23 07:45 06/14/23 08:01 Room Air 06/14/23 02:37 BiPAP 06/13/23 22:00 06/13/23 22:15 Room Air 06/13/23 20:50 Room Air 06/13/23 19:42 Room Air 06/13/23 16:00 Room Air Recovery Score Activity: Moves 4 extremities Respiration: Deep Breath/Cough Circulation: +/-20% PreAnes Value Consciousness: Fully Awake Oxygen Saturation: > 92% On Room Air Post Anesthesia Score: 10 Discharge Sedation Level of Care: Fast Track Phase II Post Sedation Plan On clinical assessment, the patient appears to have tolerated the sedation without complications. Patient is recovering as anticipated. Patient will continue to be monitored by nursing and may be discharged when sedation discharge criteria are met per below protocol. Upon Completions of procedure up to 15 minutes continue every 5 minute vital signs and the P.A.R. score; then discharge to a Phase I or Fast Track to Phase II per the following guidelines: * Discharge Patient to appropriate Phase II area if PAR is 8 or greater or return to pre- procedure baseline. The post - procedure orders will be as directed. * If PAR score is less than 8 or not return to pre-procedure baseline then patient will follow Phase I monitoring till PAR is reached for Phase II. The Phase I may be done in procedure room or may call to secure a Phase I area. * If naloxone or flumazenil are used for reversal, hold in Phase I for continued monitoring from when last reversal dose was given for a minimum of 60 minutes or longer pending the nurse and/or physician discretion of patient condition before discharge to Phase II. Please call the Sedation Physician to re-evaluate and complete post-note for discharge to Phase II area. Do NOT discharge from procedure sedation or Phase 1 until post- sedation evaluation note is complete by procedure /sedation MD Sedation Discharge Instructions to be given to the patient at discharge to home.
--- NOTE | 2023-06-14 15:29 | Electrophysiology Report ---
Date of Service June 14, 2023 Electrophysiology Procedure Electrophysiology Procedure Report Preoperative diagnosis: Sinus node dysfunction Postoperative diagnosis: Same Procedure: Left subclavian venogram Dual-chamber left bundle branch pacemaker implantation Surgeon: Varinder Harrell MD Estimated blood loss: 20 cc Complications: None Disposition: Spin Instructor recovery Procedure details: After obtaining informed consent for the procedure, the patient was brought to the laboratory and prepped and draped in the standard sterile manner. Dye was injected the left arm IV site to opacify the left subclavian vein. The subclavian vein was identified and found to be free of obstruction, although there was a narrowing near the first rib crossing. The left prepectoral region was anesthetized with 1% lidocaine local anesthetic and left axillary venipuncture was performed by percutaneous technique and a guidewire placed through the left subclavian vein into the superior vena cava. The area was further infiltrated with 1% lidocaine local anesthetic and a 6 cm incision was made parallel to the left clavicle and 3 cm below it and carried down to the anterior pectoralis fascia. A pacemaker pocket was formed by blunt dissection anterior to the pectoralis fascia and a vancomycin-soaked sponge was placed in the pocket. A 7 Micronesian Medtronic lead introducer was placed over the guidewire into the left subclavian vein, the dilator and guidewire were removed. A C315 His 02 septal sheath was advanced through the introducer over a guidewire and advanced into the right ventricular outflow tract. The guidewire and dilator were removed and the sheath was positioned in a mid septal location. A bipolar active fixation steroid tipped ventricular lead was advanced through the introducer and rotated to advance the screw into the septum. Pacing and sensing thresholds were evaluated in bipolar configuration and are noted on the data sheet. The septal sheath was stripped away from the lead. A guidewire was placed back through the introducer and the introducer was removed over the guidewire. Another Micronesian Medtronic lead introducer was placed over the guidewire into the left subclavian vein, the dilator and guidewire were removed and a bipolar active fixation steroid tipped atrial lead was advanced through the introducer into the superior vena cava. Using a curved stylette the atrial lead was positioned in the region of the atrial appendage and the screw extended fixing the lead in position. Pacing and sensing thresholds were evaluated in bipolar configuration and are recorded on the implant data sheet. The introducer was stripped from the lead. Once the leads were in position they were attached to the anterior pectoralis fascia using 2 sutures of 2-0 silk around each lead collar. The vancomycin soaked sponge was removed from the pocket, hemostasis was obtained, the pacemaker was attached to the leads and placed in the pocket with the leads coiled beneath it. The incision was closed with a running double subcutaneous closure of 3-0 Vicryl absorbable suture, followed by running subcuticular skin closure of 4-0 Vicryl absorbable suture. Bacitracin ointment was placed on the incision and a dressing applied. [facility]rophysiology codes Indication for Procedure (1) Sinus node dysfunction: Pacing Procedure 1: Pacin Insert/Replace Pacer A & V Miscellaneous Procedures Procedure 1: EP Miscellaneous: 61436 Contrast injection for venography Procedure 2: EP Miscellaneous: 69354-82 Vengraphy, extremity PG Moderate Sedation Codes Moderate Sedation Codes Procedure 1: Sedation/Anesthesia: 79786 Mod Sedation by the same physician;Init15 Min Child Age 5 & Up Procedure 2: Sedation/Anesthesia: 76763 Mod Sedation by the same physician; Ea [id number] Minutes
[2023-06-14] MEDS: predniSONE 20 MG TAB PO SCH (16:58)
[2023-06-14] MEDS: ASPIRIN 81 MG ECTAB PO SCH (16:59)
[2023-06-14] MEDS: allopurinoL 100 MG TAB PO SCH (16:59)
[2023-06-14] MEDS: ATORVASTATIN 20 MG TAB PO SCH (16:59)
[2023-06-14] MEDS: BETAMETHASONE DIPROPIONATE TOP SCH (16:59)
[2023-06-14] MEDS: CHOLECALCIFEROL 5,000 UNITS 125 MCG TAB PO SCH (16:59)
[2023-06-14] MEDS: OTEZLA 30 MG PO SCH ×2 (16:59→21:16)
[2023-06-14] MEDS: ASCORBIC ACID 500 MG TAB PO SCH (16:59)
[2023-06-14] MEDS: DONEPEZIL HCL 5 MG TAB PO SCH (16:59)
[2023-06-14] MEDS: DOCUSATE SODIUM/SENNA 50/8.6MG TAB PO SCH (16:59)
[2023-06-14] MEDS: CALCIPOTRIENE TOP SCH (16:59)
--- NOTE | 2023-06-14 17:35 | Billing Data ---
Date of Service June 14, 2023 Coding Level of Care Code 76983 SUB INP/OBS CARE
[2023-06-14] MEDS: CYANOCOBALAMIN (B-12) 500 MCG TABLET PO SCH (17:40)
[2023-06-14] MEDS: ENOXAPARIN INJ 40 MG/0.4 ML SYR SQ SCH (21:16)
[2023-06-14] MEDS: risperiDONE 0.5 MG TABLET PO SCH (21:17)
[2023-06-14] MEDS: ACETAMINOPHEN 325 MG TAB PO PRN (21:20)
[2023-06-15] MEDS: LEVOTHYROXINE SODIUM 137 MCG TABLET PO SCH (06:25)
--- NOTE | 2023-06-15 08:09 | XRay Report ---
TWO VIEW CHEST CLINICAL HISTORY: Pacemaker implantation.. FINDINGS: AP and lateral chest radiographs are compared to study dated 06/09/2023. A 2-lead cardiac pa cemaker has been placed. Leads project over the right atrial appendage and the right ventricle. The h eart is enlarged. The pulmonary vasculature is noncongested. Chronic interstitial thickening similar to previous. The lungs and pleural spaces are clear. There is no pneumothorax. The skeletal structure s are osteopenic. The bony thorax appears intact. Degenerative change and hyperkyphosis is noted in t he spine. IMPRESSION: 1. A 2-lead cardiac pacemaker has been implanted as above. No pneumothorax is seen post procedure. 2. Cardiomegaly without radiographic evidence of congestive failure. 3. No airspace consolidation or pleural effusion is identified ACT 112: Negative or not required by law. Electronically signed by: Julius Victor M.D. 06/15/2023 8:07 AM
[2023-06-15] MEDS: ASCORBIC ACID 500 MG TAB PO SCH (08:28)
[2023-06-15] MEDS: ATORVASTATIN 20 MG TAB PO SCH (08:28)
[2023-06-15] MEDS: allopurinoL 100 MG TAB PO SCH (08:28)
[2023-06-15] MEDS: ASPIRIN 81 MG ECTAB PO SCH (08:28)
[2023-06-15] MEDS: CYANOCOBALAMIN (B-12) 500 MCG TABLET PO SCH (08:29)
[2023-06-15] MEDS: CHOLECALCIFEROL 5,000 UNITS 125 MCG TAB PO SCH (08:29)
[2023-06-15] MEDS: DOCUSATE SODIUM/SENNA 50/8.6MG TAB PO SCH (08:29)
[2023-06-15] MEDS: predniSONE 20 MG TAB PO SCH (08:29)
[2023-06-15] MEDS: BETAMETHASONE DIPROPIONATE TOP SCH (08:30)
[2023-06-15] MEDS: OTEZLA 30 MG PO SCH ×2 (08:30→20:06)
[2023-06-15] MEDS: CALCIPOTRIENE TOP SCH (08:30)
--- NOTE | 2023-06-15 09:24 | Cardiology Progress Note ---
Date of Service June 15, 2023 Assessment & Plan Admission and Anticipated Discharge Date Admission Date: June 09, 2023 Subjective She is alert and opens her eyes. She does not respond to questions and this is not new. Therefore a history could not be obtained. She did not appear to be in any overt pain. Results & Data Vital Signs (Past 12 Hours) Vital Signs Temp Pulse Pulse Resp BP Pulse Ox O2 Del Method 06/15/23 08:18 36.6 C 60 18 109/73 95 Room Air 06/15/23 02:16 36.5 C 80 12 117/81 98 CPAP 06/14/23 22:05 62 06/14/23 22:59 36.4 C L 83 16 109/72 97 Room Air patient has Down syndrome and is conversant only such that her family understands her. HEENT: 2+ carotid upstrokes Lungs: Clear to auscultation bilaterally Heart: Regular rate and rhythm no appreciable murmurs Abdomen: Soft nontender nondistended positive bowel sounds obese Extremities: No clubbing cyanosis or edema IMPRESSIONS 1) Sinus pause: 2) Sinus Node dysfunction 3. S/P Dual Chamber Pacer 4. Normal LV function Appreciate the EP service placing a dual-chamber pacemaker yesterday. Her telem etry monitoring and EKG is consistent with an atrial paced rhythm with normal AV conduction. We will await her device interrogation today and her chest x-ray. From a cardiac standpoint assuming her interrogation and chest x-ray are she could be discharged. She cannot lift her left arm above 90 degrees for at least 30 days. Given her Down syndrome she may need an arm sling in order to remind her not to do this. She will need an incision check in 10 to 14 days in the office along with long- term monitoring. If the EP service would like to do her incision check we can then arrange for her long-term follow-up. If they would prefer that we do her wound check we will arrange for that as well.
[2023-06-15] MEDS: DONEPEZIL HCL 5 MG TAB PO SCH (09:26)
[2023-06-15] MEDS: FAMOTIDINE 20 MG in SYRINGE 3 ML IV SCH (09:26)
--- NOTE | 2023-06-15 10:55 | Cardiology Progress Note ---
Date of Service June 15, 2023 Assessment & Plan (1) Status post placement of cardiac pacemaker: Plan 1. Postop day 1: She is doing well post pacemaker implantation, the site looks good, the device is working well and she has no pneumothorax and the leads are in good position. From my standpoint she is stable for discharge. I will place discharge instructions for discharge summary, although I understand she is likely going to rehab. Admission and Anticipated Discharge Date Admission Date: June 09, 2023 Subjective She does not seem to be having any difficulty with discomfort at her pacemaker site or other discomfort to the surgery. Physical Exam Physical Exam: The incision is clean and dry, minimal bleeding on the dressing. No erythema, ecchymosis or swelling. Dressing changed. Cardiac rhythm is regular with no rubs Lungs are clear Results & Data Vital Signs (Past 12 Hours) Vital Signs Temp Pulse Resp BP Pulse Ox O2 Del Method 06/15/23 08:18 36.6 C 60 18 109/73 95 Room Air 06/15/23 02:16 36.5 C 80 12 117/81 98 CPAP 06/14/23 22:59 36.4 C L 83 16 109/72 97 Room Air Laboratory Results Intake and Output 06/14/23 06/15/23 06/15/23 22:59 06:59 14:59 Intake Total 735.417 / 1795.417 60 / 1795.417 Output Total 1451 / 1451 Balance 735.417 / 344.417 -1391 / 344.417 -1 Intake: IV 735.417 / 1735.417 Lactated Ringer's 1,000 ml @ 735.417 / 1735.417 125 mls/hr IV .Q8H JACKIE Rx#: [id number] Oral 60 / 60 Output: Urine 1450 / 1450 # Bowel Movements Other: # Unmeasured Voids 1 Weight 95.4 kg Weight Measurement Method Built in [facility] Diagnostic Findings Postop ECG: Atrial pacing with intact AV conduction, normal pacemaker operation Telemetry: Atrial pacing, normal operation Chest x-ray: Good lead position, no pneumothorax Pacemaker evaluation: Excellent pacing sensing characteristics PG Care Time/CCT Total # of Minutes Spent Total Time Spent with Patient: Total time spent is greater than 50% in coordination of care (as documented) at patient's floor/unit and/or counseling patient: Coding Level of Care Code 72018 Post Operative Follow-Up Diagnoses Status post placement of cardiac pacemaker Z95.0 CPT Codes Dual Lead Pacemaker System - 15911 ([id number])
--- NOTE | 2023-06-15 15:53 | Hospitalist Progress Note ---
Date of Service June 15, 2023 Assessment & Plan (1) Sinus node dysfunction: (2) Recurrent UTI: (3) Drug rash: (4) Down syndrome: (5) Alzheimer disease: (6) Weakness: (7) LILIBETH (obstructive sleep apnea): (8) Psoriasis: (9) Hypothyroidism: Plan #Sinus Node Dysfunction - syncopal type episode noticed on 06/09, no h/o seizures - sinus pauses noted on 06/12 - 5.3 seconds, 6.8 seconds -pt not on AV tracey blockers -may explain recurrent falls/weakness -Cardiology consult - pacemaker placement completed 06/14 #Drug Rash - Pt developed rash on chest about 3 days into course of ampicillin for UTI -concomitant weakness/fatigue -Ampicillin discontinued -Completed course of Ciprofloxacin 06/10 - Rash improving, continue Prednisone 20mg daily -prn hydroxyzine for itching -Case management following, PT/OT notes updated, placement pending #UTI -as above -repeat urine cx negative #Weakness - Imaging work up negative for acute process - negative CT head, CTA head/neck, MRI brain -likely secondary to sinus pauses #Down Syndrome - Risperidone 25mg qHS #Alzheimer's Disease #LILIBETH: -CPAP at night #Hypothyroidism -continue synthroid #Psoriasis -Apremilast BID Admission and Anticipated Discharge Date Admission Date: June 09, 2023 Supervising Physician Co-Signing Physician Notes I personally examined the patient and verified all heart points of history and exam, discussed case, and agree with decision making with Dr Kline no meaningful HPI review of systems from patient. for pacer today. Vitals noted, in general she is sleeping comfortably and appears in no distress. Breathing unlabored no accessory muscle use good effort. Skin shows no rashes no pallor or icterus. Syncope/fallssymptomatic bradycardiapost pacer, for rehab, ankle/foot xrays negative for fracture Subjective Patient evaluated at bedside this morning. Family not present during visit and patient is minimally communicative, unable to ask questions about symptoms but patient appears content and in no apparent distress. Review of Systems Review of Systems: All systems reviewed & are unremarkable except as noted in HPI & below Physical Exam Constitutional: WD/WN, vitals as above no acute distress Respiratory: normal respiratory effort, lungs clear to auscultation Cardiovascular: RRR, no murmur, no edema Skin: ongoing erythematous maculopapular rash on chest and neck, continual improvement Results & Data Results & Data Vital Signs (Past 12 Hours) Vital Signs Temp Pulse Pulse Resp BP Pulse Ox O2 Del Method 06/15/23 15:21 37.1 C 64 18 91/64 L 98 Room Air 06/15/23 11:40 36.8 C 65 16 113/75 98 Room Air 06/15/23 07:14 60 06/15/23 10:58 Room Air 06/15/23 08:18 36.6 C 60 18 109/73 95 Room Air Resident Activity Tracking Resident Involvement: Resident Care Provided Care Provided: Adult Hospital Medicine
--- NOTE | 2023-06-15 16:17 | XRay Report ---
LUMBAR SPINE 2 VIEWS CLINICAL HISTORY: Left foot pain. FINDINGS: AP and lateral views of the left foot are obtained. No prior studies are available for maged hussein at the time of dictation. The skeletal structures are well-mineralized. No fracture is seen. T here is hallux valgus with mild osteoarthritic change at the first metatarsophalangeal joint. The cedric nt spaces of the foot are otherwise maintained. Mild soft tissue swelling is suggested throughout the foot. There is a tiny dorsal heel spur. IMPRESSION: No acute bony abnormality is identified. Electronically signed by: Julius Victor M.D. 06/15/2023 4:16 PM
--- NOTE | 2023-06-15 16:49 | XRay Report ---
XR ankle LT 2V HISTORY: 57 years-old Female foot/ankle pain COMPARISON: Left foot radiographs of same day TECHNIQUE: 2 views of the left ankle FINDINGS: Limited study secondary to the patient's socks and positioning. Os trigonum. Mild circumferential sof t tissue swelling with mild osteoarthritis. No acute fracture, dislocation or osteochondral defect. IMPRESSION: No acute fracture or dislocation identified. ACT 112: Negative or not required by law. The above report was generated using voice recognition software. It may contain grammatical, syntax o r spelling errors. Electronically signed by: Jann Aviles M.D. 06/15/2023 4:48 PM
--- NOTE | 2023-06-15 19:47 | Billing Data ---
Date of Service June 15, 2023 Coding Level of Care Code 85510 SUB INP/OBS CARE
[2023-06-15] MEDS: risperiDONE 0.5 MG TABLET PO SCH (20:05)
[2023-06-15] MEDS: ENOXAPARIN INJ 40 MG/0.4 ML SYR SQ SCH (20:06)
[2023-06-16] MEDS: LEVOTHYROXINE SODIUM 137 MCG TABLET PO SCH (05:54)
--- NOTE | 2023-06-16 06:32 | Electrocardiogram Report ---
Test Reason : Blood Pressure : / mmHG Vent. Rate : 061 BPM Atrial Rate : 061 BPM P-R Int : 176 ms QRS Dur : 076 ms QT Int : 416 ms P-R-T Axes : 056 059 078 degrees QTc Int : 418 ms Atrial-paced rhythm Abnormal ECG When compared with ECG of 07-JUN-2023 17:45, Electronic atrial pacemaker has replaced Sinus rhythm Confirmed by Sotero Goetz ([id number]) on 06/16/2023 6:32:21 AM Referred By: Blas Valentine Confirmed By:Sotero Goetz
--- NOTE | 2023-06-16 08:01 | Hospitalist Progress Note ---
Date of Service June 16, 2023 Assessment & Plan (1) Sinus node dysfunction: (2) Recurrent UTI: (3) Drug rash: (4) Down syndrome: (5) Alzheimer disease: (6) Weakness: (7) LILIBETH (obstructive sleep apnea): (8) Psoriasis: (9) Hypothyroidism: Plan #Sinus Node Dysfunction - syncopal type episode noticed on 06/09, no h/o seizures - sinus pauses noted on 06/12 - 5.3 seconds, 6.8 seconds -pt not on AV tracey blockers -may explain recurrent falls/weakness -Cardiology consult - pacemaker placement completed 06/14 #Drug Rash - Pt developed rash on chest about 3 days into course of ampicillin for UTI -concomitant weakness/fatigue -Ampicillin discontinued -Completed course of Ciprofloxacin 06/10 - Rash improving, continue Prednisone 20mg daily -prn hydroxyzine for itching -Case management following, PT/OT notes updated, placement pending #UTI -as above -repeat urine cx negative #Weakness - Imaging work up negative for acute process - negative CT head, CTA head/neck, MRI brain -likely secondary to sinus pauses #Down Syndrome - Risperidone 25mg qHS #Alzheimer's Disease #LILIBETH: -CPAP at night #Hypothyroidism -continue synthroid #Psoriasis -Apremilast BID Admission and Anticipated Discharge Date Admission Date: June 09, 2023 Results & Data Results & Data Vital Signs (Past 12 Hours) Vital Signs Temp Pulse Pulse Resp BP Pulse Ox O2 Del Method 06/16/23 07:23 36.8 C 69 16 143/63 H 97 Room Air 06/16/23 04:06 36.3 C L 69 20 123/83 95 Room Air, Nasal CPAP 06/15/23 23:30 60 06/15/23 23:00 36.6 C 60 20 95/63 L 95 CPAP
[2023-06-16] MEDS: ASCORBIC ACID 500 MG TAB PO SCH (08:11)
[2023-06-16] MEDS: BETAMETHASONE DIPROPIONATE TOP SCH (08:11)
[2023-06-16] MEDS: CALCIPOTRIENE TOP SCH (08:11)
[2023-06-16] MEDS: allopurinoL 100 MG TAB PO SCH (08:12)
[2023-06-16] MEDS: FAMOTIDINE 20 MG in SYRINGE 3 ML IV SCH (08:12)
[2023-06-16] MEDS: CHOLECALCIFEROL 5,000 UNITS 125 MCG TAB PO SCH (08:12)
[2023-06-16] MEDS: hydrOXYzine HCl 10 MG TAB PO PRN (08:12)
[2023-06-16] MEDS: predniSONE 20 MG TAB PO SCH (08:12)
[2023-06-16] MEDS: DOCUSATE SODIUM/SENNA 50/8.6MG TAB PO SCH (08:12)
[2023-06-16] MEDS: ASPIRIN 81 MG ECTAB PO SCH (08:12)
[2023-06-16] MEDS: DONEPEZIL HCL 5 MG TAB PO SCH (08:12)
[2023-06-16] MEDS: CYANOCOBALAMIN (B-12) 500 MCG TABLET PO SCH (08:12)
[2023-06-16] MEDS: ATORVASTATIN 20 MG TAB PO SCH (08:12)
[2023-06-16] MEDS ORDERED: NON-FORMULARY PATIENT'S OWN MED PO SCH (09:00)
--- NOTE | 2023-06-16 13:28 | Discharge Summary ---
Date of Service June 16, 2023 Admission HPI Per Admitting Provider Lacie is a 57-year-old female with a past medical history of Down syndrome, Alzheimer's, recurrent falls who started on ampicillin 1 week ago for UTI and since then has had a rash over her face and chest with worsening weakness and falls Elise is seen with her parents present. Weak and dizzy for ~3 days. Much more weak, normally unstead on her feet but feels very tired and much more weak than normal 3x falls, very hard to get up standing due to weakness No fevers, or chills. No temperature No cough, congestion, shotness of breath, difficulty breathing No chest pain or chest pressure COmpleted an antibiotic course which she was on for one week. No urinary sypmtoms, but + rash. Was on bactrim for a UTI the week prior. Saw [facility] and tested positive for a different UTI --> f/u with amoxNOm completed 3 of 7 days of ampicillin for enterococcus UTI Medical History: Reviewed Medications: Reviewed Surgical History: Reviewed Family history: Reviewed Allergies: Reviewed Social History: Reviewed no tobacco/etoh Code Status: Full per family r tm obscured l tm with ear tubes in place, TM scarring present. No erythema/effusion Admission Exam Per Admitting Provider General: Oriented to name NAD. Cooperative. HEENT: Atraumatic, normocephalic. Vision/hearing grossly intact. No airway swelling, uvula is midline, no mucous membrane swelling/angioedema Skin: Erythematous, pruritic, scattered papular rash present overlying the chest and proximal anterior shoulders bilaterally Pulm: CTAB A&P. -wheezes, -rales, -rhonchi. Symmetrical chest rise. No increased work of breathing. No respiratory distress. Cardiac: RRR, -mrg. Radial pulses intact and symmetrical. Abdominal: Nontender, nondistended, soft. BS present. Extremities: Warm, dry. Moves all extremities equally, fatigues very easily. Endorses sensation intact to soft touch in hands and feet, limited exam somewhat by mental status Principal Diagnosis Sinus node dysfunction Discharge Exam Constitutional WD/WN, vitals as above no acute distress Respiratory normal respiratory effort, lungs clear to auscultation Cardiovascular RRR, no murmur, no edema Skin mildly erythematous, maculopapular rash on chest, significantly improved Discharge Data Allergies Allergy/AdvReac Type Severity Reaction Status Date / Time ampicillin Allergy Intermediate Rash, Verified 06/10/23 07:38 fatigue colchicine Allergy Intermediate Swelling Unverified 06/07/23 20:45 of the Eye Consultations 06/07/23 20:46 ED Decision to Admit Stat 06/08/23 12:39 Consult Neurology Routine 06/08/23 12:45 HIM [Consult Health Information Management] Routine 06/12/23 12:59 Consult Cardiology Routine 06/14/23 09:24 Consult Cardiology Routine Procedures Performed Operation Date: 06/14/23 13:00 Actual Procedures p Pacer with A/V Leads (Dual) - Varinder Harrell MD s Venogram, Unilateral - Varinder Harrell MD Ordered Studies 06/07/23 18:23 CT angio head w con Stat CT angio neck with con Stat CT head/brain wo con Stat 06/07/23 18:24 CT cervical spine wo con Stat 06/09/23 10:19 MRI Brain [MR brain wo/w con] Routine 06/10/23 16:23 CT femur LT wo con Routine CT hip LT wo con Routine 06/14/23 07:15 EP Lab Images for PACS ONCE Hospital Course (1) Sinus node dysfunction: (2) Recurrent UTI: (3) Drug rash: (4) Down syndrome: (5) Alzheimer disease: (6) Weakness: (7) LILIBETH (obstructive sleep apnea): (8) Psoriasis: (9) Hypothyroidism: T Plan Pt is a 57-year-old female with a past medical history of Down syndrome, Alzheimer's, recurrent falls who was started on ampicillin 1 week prior to admission for UTI and developed a rash over her face and chest with worsening weakness and falls. #Sinus Node Dysfunction - syncopal type episode noticed on 06/09, no h/o seizures - sinus pauses noted on 06/12 - 5.3 seconds, 6.8 seconds -pt not on AV tracey blockers -EKG findings possibly explain recurrent falls/weakness -Cardiology consulted - pacemaker placement completed 06/14 -Evaluated by PT/OT, discharged to acute rehab facility #Drug Rash - Pt developed rash on chest about 3 days into course of ampicillin for UTI -concomitant weakness/fatigue -Ampicillin discontinued -Completed course of Ciprofloxacin 06/10 for original UTI - Rash improved over the course of hospital stay, patient was treated with 7 day course of prednisone -prn hydroxyzine was given for itching #UTI -as above -repeat urine cx was negative #Weakness - Imaging work up was negative for acute process - negative CT head, CTA head/neck, MRI brain -likely secondary to sinus pauses #Down Syndrome - Continue Risperidone 25mg qHS #Alzheimer's Disease #LILIBETH: -Continue CPAP at night #Hypothyroidism -continue synthroid #Psoriasis -Continue Apremilast Total Time Total Time Spent Total Time Spent (In Minutes): see attending attestation Discharge Plan Discharge Items Patient Disposition: Transfer Inpatient Rehab Fac Reason For Visit: WEAKNESS, ?AMPICILLIN DRUG RASH Discharge Diagnosis: drug rash, sinus node dysfunction Activity: As commented below Activity Comment: do dot raise arm above head for 2 weeks per cardiology Non-emergency contact: Primary Care Provider Call non-emergency contact if: you have any medication questions and your symptoms worsen Follow-up/Referrals: Blas Valentine [Primary Care Provider] - Diet: Regular Addtl Attending Provider Instructions: ACTIVITY RECOMMENDATIONS: * Do not raise affected arm over head for 2 weeks. SPECIAL CARE INSTRUCTIONS: * If bleeding occurs, apply direct pressure to area for 5 minutes. * Call your doctor if you have severe pain, fever, drainage or bleeding at site. * Keep dressing on and dry for 48 hours then remove. * Keep any scheduled doctor's appointment. * Implant Card - hand held device with website information given. SKIN IRRITATION: * You may experience some redness and/or swelling in the area where radiation was administered. If any skin irritation occurs, please contact your family physician. FOLLOW UP VISIT: Keep any scheduled doctor appointments. Pending Studies at Discharge: No Stand-Alone Forms: My [facility] Skilled Items Patient informed of condition?: Yes DNR: No Discharge Level of Care: Acute rehab Communicable Disease: No Discharge Prognosis: Stable Lines: None Urinary Catheter: No Medications and DC Order Prescriptions: New hydroxyzine HCl 10 mg Tablet 10 mg PO DAILY PRN (Reason: itching) Qty: 10 0RF Continued Otezla 30 mg tablet 30 mg PO DAILY levothyroxine 137 mcg capsule 137 mcg PO DAILY allopurinol 100 mg tablet 100 mg PO DAILY donepezil 5 mg tablet 5 mg PO DAILY atorvastatin 20 mg tablet 20 mg PO DAILY glucosamine HCl 1,500 mg tablet 1,500 mg PO DAILY Rx Instructions: administer with a meal mecobalamin (vitamin B12) 1,000 mcg tablet,chewable 1,000 mcg PO DAILY ascorbic acid (vitamin C) 500 mg capsule 500 mg PO DAILY cholecalciferol (vitamin D3) 125 mcg (5,000 unit) capsule 125 mcg PO DAILY risperidone 0.25 mg tablet 25 mg PO HS aspirin 81 mg Tablet,Delayed Release (Dr/Ec) 81 mg PO DAILY clindamycin phosphate 1 % swab 1 applic TOPICAL DAILY metronidazole 0.75 % cream 1 applic TOPICAL DAILY calcipotriene-betamethasone 0.005-0.064 % ointment 1 applic TOPICAL DAILY cranberry juice Liquid 1 ea PO DAILY Discontinued ampicillin 500 mg capsule 500 mg PO TID Qty: 21 0RF Rx Instructions: sister thinks this is whats causing a problem currently Discharge Orders: Discharge Order (Routine); Ordered 06/16/23 Ordered By: Archie Kline Admission Data Admit Date/Time: 06/09/23 12:26 Attending Provider: Les Torres Admit Provider: Jimbo Zarco Primary Care Provider: Blas Valentine Other Providers: Jimbo Zarco ; Max Hutchinson ; [facility] ; Varinder Bean ; Francisco Montanez Other Interventions: Discharge Summary Assessment (RN) Last Done: 06/16/23 15:23 Supervising Physician Co-Signing Physician Notes I personally examined the patient and verified all heart points of history and exam, discussed case, and agree with decision making with Dr Kline no meaningful HPI review of systems from patient. for rehab today. Vitals noted, in general she is sleeping comfortably and appears in no distress. Breathing unlabored no accessory muscle use good effort. Skin shows no rashes no pallor or icterus. Syncope/fallssymptomatic bradycardiapost pacer, for rehab today, ankle/foot xrays negative for fracture Resident Activity Tracking Resident Involvement: Resident Care Provided Care Provided: Adult Hospital Medicine
--- NOTE | 2023-06-16 18:25 | Billing Data ---
Date of Service June 16, 2023 Coding Level of Care Code 22427 IN/OBS DISCH 30 MIN/LESS
== END 2023-06-16 15:54 | DRG 243 ==
LOC: ED 17:25 → 3W 17:25 → SUATTDRO 21:30 → 3W 21:49 → 2W 06-08 16:24 → SUATTDRO 06-09 12:26 → 2S 06-12 14:03